=== PATIENT | female | born 1965 | race Caucasian/White ===

== ENCOUNTER 2016-12-02 20:39 | Inpatient (IN) | payer MEDICARE, MEDICAID ==
[2016-12-02] MEDS ORDERED: HYDROmorphone 0.5 MG/0.5 ML Syringe IVPUSH ONE (21:07)
[2016-12-02] MEDS ORDERED: LORazepam 2 MG/ML MDV IVPUSH ONE (21:07)
[2016-12-02] MEDS ORDERED: Thiamine 100 MG in Sodium Chloride 0.9% 100 ML IV ONE (21:13)
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
[2016-12-02] MEDS ORDERED: Dextrose 5%-0.9% NaCl 1,000 ML IV SCH (21:15)
--- NOTE | 2016-12-02 22:16 | CT ---
CT cervical spine Technique: Multiple axial sections were obtained from above C1 inferiorly to the bottom of T1. Reconstructed coronal and sagittal images were obtained. Comparison: No previous study. Findings: Mastoid sinuses and middle ear cavities are clear. Posterior skull base is intact. Vertebral bodies and posterior arches are intact. No fracture is seen. No bony central or bony neural foraminal. No abnormal subluxation is seen on the reconstructed sagittal images. There is focal osteopenia or a lucent lesion within the base of the dens. No cortical disruption is seen. Impression: 1. Lucent lesion within the dens. This may represent focal osteopenia but difficult to exclude early osteolytic lesion, this puts the patient at risk for future pathologic fracture. Nonemergent bone survey recommended to make sure no additional lucent lesions are present within the skeletal system. 2. Nothing acute is appreciated on CT study of the cervical spine. Diagnostic code #9
--- NOTE | 2016-12-02 22:19 | CT ---
Head CT Technique: Multiple axial sections through the brain were obtained. Intravenous contrast was not utilized. Comparison: No previous intracranial imaging. Findings: Ventricles along with basal cisterns and sulci over the convexities appear within normal limits for the patient's age. No abnormal parenchymal densities are seen. No evidence of intracranial hemorrhage. No midline shift or mass effect is seen. Bone window settings were reviewed which shows the visualized sinuses to appear clear. No acute calvarial abnormality is seen. Impression: 1. No acute intracranial abnormality is identified. Diagnostic code #1
--- NOTE | 2016-12-02 22:22 | CT ---
CT lumbar spine Technique: Multiple axial sections were obtained from the bottom of T11 through the L5-S1 disc. Reconstructed coronal and sagittal images were reviewed. Findings: Mild to moderate endplate concavity is seen within the superior L1 vertebral body believed to be acute. No extension into the posterior line or posterior elements is seen. No additional fracture is identified. Slight circumferential disc bulge is noted at L3-4 with posterior disc maintaining a concave margin. Circumferential disc bulge noted at L4-5. Diffuse posterior disc bulge seen at L5-S1 with slight vacuum phenomena. No focal disc herniation is seen. No central canal stenosis or neural foraminal stenosis is seen. Impression: 1. Superior endplate concavity of L1 which appears to be acute. 2. Mild circumferential disc bulging as noted above. No focal disc herniation is seen. 3. No additional abnormality is appreciated. Diagnostic code #3
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
[2016-12-02] MEDS ORDERED: Promethazine 12.5 MG in Sodium Chloride 0.9% 50 ML IV PRN (23:24)
[2016-12-02] MEDS ORDERED: Ondansetron 4 MG/2 ML SDV IV PRN (23:24)
[2016-12-02] MEDS ORDERED: HYDROmorphone 1 MG/ML Syringe IVPUSH PRN (23:24)
[2016-12-02] MEDS ORDERED: Albuterol/Ipratropium 3.0-0.5 MG/3 ML Neb Soln NEB PRN (23:24)
[2016-12-02] MEDS ORDERED: Polyethylene Glycol 3350 Powder 17 GM Packet PO PRN (23:24)
[2016-12-02] MEDS ORDERED: Bisacodyl 5 MG Tab PO PRN (23:24)
[2016-12-02] MEDS ORDERED: hydrALAZINE 20 MG/ML SDV IVPUSH PRN (23:31)
[2016-12-02] MEDS ORDERED: LORazepam 2 MG/ML MDV IVPUSH PRN ×2 (23:31)
[2016-12-02] MEDS ORDERED: Metoprolol Tartrate 5 MG/5 ML SDV IVPUSH PRN (23:31)
[2016-12-03] MEDS ORDERED: cloNIDine 0.3 MG/Day Transdermal Patch TRDERM ONE
[2016-12-03] MEDS ORDERED: Lidocaine 5% 700 MG Patch TOP SCH
[2016-12-03] MEDS: QUEtiapine 25 MG Tab PO SCH ×2 (00:03→20:49)
[2016-12-03] MEDS: Temazepam 30 MG Cap PO PRN ×2 (00:03→20:49)
[2016-12-03] MEDS: LORazepam 2 MG/ML MDV IVPUSH PRN ×4 (00:03→20:52)
[2016-12-03] MEDS: Dextrose 5%-0.45% NaCl 1,000 ML IV SCH ×2 (00:05→20:48)
[2016-12-03] MEDS: Acetaminophen/HYDROcodone 325-5 MG Tab PO PRN ×2 (05:23→17:51)
[2016-12-03] MEDS: Pantoprazole 40 MG Tab.CR PO SCH ×2 (05:23→15:02)
[2016-12-03] MEDS ORDERED: Levothyroxine 112 MCG Tab PO SCH (06:00)
--- NOTE | 2016-12-03 08:11 | PCM.PN ---
- General Info Date of Service: 12/03/16 Admission Dx/Problem (Free Text): Admission Diagnosis/Problem Admission Diagnosis/Problem Compression fracture of lumbar spine Subjective Update: Follow Up Functional Status: Reports: pain controlled, tolerating diet, ambulating, urinating. Denies: new symptoms - Review of Systems General: Reports: Weakness. Denies: Fever, Chills HEENT: Reports: no symptoms Pulmonary: Denies: shortness of breath Cardiovascular: Denies: Chest Pain, Palpitations, Dyspnea on Exertion Gastrointestinal: Denies: Abdominal pain, Nausea, Vomiting Genitourinary: Reports: no symptoms Musculoskeletal: Reports: back pain Skin: Denies: cyanosis, rash Neurological: Reports: Difficulty Walking, Weakness, Gait Disturbance Psychiatric: Denies: depression, anxiety, agitation, cravings, hallucinations Systems Review Comment:: No overnight issues. She slept good. She still has pain. She appears lethargic. - Patient Data Vitals - most recent: Last Vital Signs Temp 36.6 C 12/03/16 04:00 Pulse 94 12/03/16 06:00 Resp 11 L 12/03/16 06:00 BP 102/69 12/03/16 04:01 Pulse Ox 98 12/03/16 06:00 Weight - most recent: 65.771 kg I&O - last 24 hours: Intake & Output 12/02/16 12/03/16 12/03/16 22:59 06:59 14:59 Intake Total 1679 Output Total 250 Balance 1429 Lab Results last 24 hrs: Laboratory Results - last 24 hr 12/03/16 12/03/16 Range/Units 05:20 05:20 WBC 3.50 L (3.98-10.04) K/mm3 RBC 3.31 L (3.98-5.22) M/mm3 Hgb 8.8 L (11.2-15.7) gm/L Hct 28.6 L (34.1-44.9) % MCV 86.4 (79.4-94.8) fl MCH 26.6 (25.6-32.2) pg MCHC 30.8 L (32.2-35.5) g/dl RDW Std Deviation 62.1 H (36.4-46.3) fL Plt Count 109 L (182-369) K/mm3 MPV 9.7 (9.4-12.3) fl Neut % (Auto) 60.8 (34.0-71.1) % Lymph % (Auto) 26.9 (19.3-51.7) % Ashe % (Auto) 9.4 (4.7-12.5) % Eos % (Auto) 1.1 (0.7-5.8) Baso % (Auto) 0.9 (0.1-1.2) % Neut # (Auto) 2.13 (1.56-6.13) K/mm3 Lymph # (Auto) 0.94 L (1.18-3.74) K/mm3 Ashe # (Auto) 0.33 (0.24-0.36) K/mm3 Eos # (Auto) 0.04 (0.04-0.36) K/mm3 Baso # (Auto) 0.03 (0.01-0.08) K/mm3 Sodium 138 (136-145) mEq/L Potassium 3.6 (3.5-5.1) mEq/L Chloride 102 (98-107) mEq/L Carbon Dioxide 29 (21-32) mEq/L Anion Gap 10.6 (5-15) BUN 11 (7-18) mg/dL Creatinine 0.6 (0.55-1.02) mg/dL Est Cr Clr Drug Dosing 81.82 mL/min Estimated GFR (MDRD) > 60 (>60) mL/min BUN/Creatinine Ratio 18.3 H (14-18) Glucose 126 H (74-106) mg/dL Calcium 7.4 L (8.5-10.1) mg/dL Magnesium 1.6 L (1.8-2.4) mg/dl Med Orders - Current: Current Medications Acetaminophen (Tylenol) 650 mg PO Q4H PRN PRN Reason: Pain (Mild 1-3)/fever Hydrocodone Bitart/Acetaminophen (Warren 325-5 Mg) 1 tab PO Q4H PRN PRN Reason: Pain (moderate 4-6) Last Admin: 12/03/16 05:23 Dose: 1 tab Albuterol/Ipratropium (Duoneb 3.0-0.5 Mg/3 Ml) 3 ml NEB Q4H PRN PRN Reason: Shortness Of Breath/wheezing Bisacodyl (Dulcolax) 5 mg PO DAILY PRN PRN Reason: Constipation Bupropion HCl (Wellbutrin Xl) 150 mg PO DAILY [facility] Chlordiazepoxide HCl (Librium) 25 mg PO TID [facility] Docusate Sodium (Colace) 100 mg PO BID [facility] Hydralazine HCl (Apresoline) 20 mg IVPUSH Q4H PRN PRN Reason: Hypertension Hydromorphone HCl (Dilaudid) 1 mg IVPUSH Q6H PRN PRN Reason: Pain (severe 7-10) Last Admin: 12/03/16 00:00 Dose: 1 mg Dextrose/Sodium Chloride (Dextrose 5%-Normal Saline) 1,000 mls @ 999 mls/hr IV ASDIRECTED [facility] Last Admin: 12/02/16 21:16 Dose: 999 mls/hr Dextrose/Sodium Chloride (Dextrose 5%-1/2 Ns) 1,000 mls @ 125 mls/hr IV ASDIRECTED [facility] Last Admin: 12/03/16 00:05 Dose: 125 mls/hr Promethazine HCl 12.5 mg/ (Sodium Chloride) 50.5 mls @ 100 mls/hr IV Q6H PRN PRN Reason: Nausea/Vomiting Levothyroxine Sodium (Levothyroxine) 112 mcg PO ACBREAKFAST [facility] Last Admin: 12/03/16 05:23 Dose: 112 mcg Lidocaine (Lidoderm 5%) 700 mg TOP Q24H [facility] Last Admin: 12/03/16 00:04 Dose: 700 mg Lorazepam (Ativan) 2 mg IVPUSH Q4H PRN PRN Reason: Seizures Lorazepam (Ativan) 0 mg IVPUSH ASDIRECTED PRN; Protocol PRN Reason: Withdrawal Symptoms Last Admin: 12/03/16 05:20 Dose: 1 mg Magnesium Sulfate (Pharmacy To Dose - Magnesium Replacement) 1 dose .XX ASDIRECTED [facility] Metoprolol Tartrate (Lopressor) 5 mg IVPUSH Q4H PRN PRN Reason: Tachycardia Miscellaneous Information (Remove Patch) 1 ea TRDERM Q24H [facility] Ondansetron HCl (Zofran) 4 mg IV Q6H PRN PRN Reason: Nausea/Vomiting Oxycodone HCl (Oxycontin) 10 mg PO Q12HR [facility] Pantoprazole Sodium (Protonix) 40 mg PO BIDAC [facility] Last Admin: 12/03/16 05:23 Dose: 40 mg Polyethylene Glycol (Miralax) 17 gm PO DAILY PRN PRN Reason: Constipation Potassium Chloride (Pharmacy To Dose - Potassium Replacement) 1 dose .XX ASDIRECTED [facility] Pramipexole Dihydrochloride (Mirapex) 0.125 mg PO BEDTIME LOVE Quetiapine Fumarate (Seroquel) 50 mg PO BEDTIME LOVE Last Admin: 12/03/16 00:03 Dose: 50 mg Senna/Docusate Sodium (Senna Plus) 1 tab PO BID PRN PRN Reason: Constipation Temazepam (Restoril) 30 mg PO BEDTIME PRN PRN Reason: Insomnia Last Admin: 12/03/16 00:03 Dose: 30 mg Thiamine HCl (Vitamin B-1) 100 mg PO DAILY [facility] Discontinued Medications Clonidine HCl (Catapres-Tts 3) 0.3 mg TRDERM Q7D ONE Stop: 12/03/16 00:01 Last Admin: 12/03/16 00:04 Dose: 0.3 mg Enoxaparin Sodium (Lovenox) 40 mg SUBCUT DAILY [facility] Hydromorphone HCl (Dilaudid) 0.5 mg IVPUSH ONETIME ONE Stop: 12/02/16 21:08 Last Admin: 12/02/16 21:20 Dose: 0.5 mg Hydromorphone HCl (Dilaudid) 1 mg IVPUSH Q4H PRN PRN Reason: Pain (severe 7-10) Thiamine HCl 100 mg/ Sodium (Chloride) 101 mls @ 200 mls/hr IV ONETIME ONE Stop: 12/02/16 21:43 Last Admin: 12/02/16 21:54 Dose: 200 mls/hr Lorazepam (Ativan) 1 mg IVPUSH ONETIME ONE Stop: 12/02/16 21:08 Last Admin: 12/02/16 21:17 Dose: 1 mg Lorazepam (Ativan) 1 mg IVPUSH Q4H PRN; Protocol PRN Reason: Withdrawal Symptoms Quetiapine Fumarate (Seroquel) 50 mg PO BEDTIME LOVE Trazodone HCl (Trazodone) 150 mg PO BEDTIME LOVE - Exam General: lethargic HEENT: Pupils equal, Pupils reactive, EOMI, Mucous membr. moist/pink Neck: supple, trachea midline, no JVD, no thyromegaly Lungs: Clear to auscultation, Normal respiratory effort Cardiovascular: Regular Rate, Regular Rhythm Abdomen: bowel sounds present, soft, no tenderness, no distension (Female) Exam: Deferred Back Exam: normal inspection, decreased range of motion Extremities: no edema, normal pulses, no tenderness/swelling, no clubbing, no cyanosis, no calf tenderness Peripheral Pulses: 2+: dorsalis pedis (L), dorsalis pedis (R) Skin: warm, dry, intact Neurological: no new focal deficit Psy/Mental Status: alert, normal affect, normal mood, withdrawal symptoms. No: agitated, suicidal ideation, homicidal ideation, hallucinations Physical Findings Comments:: She is still lethargic. - Problem List Review Problem List Initiated/Reviewed/Updated: Yes - My Orders Last 24 Hours: My Active Orders 12/02/16 23:24 CIWAA Assessment [RC] Q15M CIWAA Assessment [RC] Q1H CIWAA Assessment [RC] Q30M CIWAA Assessment [RC] Q4H Height and Weight [RC] 04 Notify Provider [RC] PRN Oxygen Therapy [RC] PRN Up With Assistance [RC] ASDIRECTED Up ad Reema [RC] ASDIRECTED VTE/DVT Education [RC] PER UNIT ROUTINE Vital Signs [RC] Q4HR Acetaminophen [Tylenol] 650 mg PO Q4H PRN Acetaminophen/HYDROcodone [Warren 325-5 MG] 1 tab PO Q4H PRN Albuterol/Ipratropium [DuoNeb 3.0-0.5 MG/3 ML] 3 ml NEB Q4H PRN Bisacodyl [Dulcolax] 5 mg PO DAILY PRN Docusate Sodium/Sennosides [Senna Plus] 1 tab PO BID PRN Ondansetron [Zofran] 4 mg IV Q6H PRN Polyethylene Glycol 3350 [MiraLAX] 17 gm PO DAILY PRN Promethazine [Phenergan] 12.5 mg Sodium Chloride 0.9% [Normal Saline] 50 ml IV Q6H Resuscitation Status Routine 12/02/16 23:25 Cardiac Monitoring [RC] CONTINUOUS Intake and Output [RC] 04,16 12/02/16 23:26 RT Aerosol Therapy [RC] ASDIRECTED Consult to Case Management [CONS] Routine Consult to Physician [CONS] Routine Consult to Occasional Babysitter [CONS] Routine Consult to Spiritual Care [CONS] Routine OT Evaluation and Treatment [CONS] Routine PT Evaluation and Treatment [CONS] Routine 12/02/16 23:29 Notify Provider Consults [RC] ASDIRECTED 12/02/16 23:30 Dextrose 5%-0.45% NaCl [Dextrose 5%-1/2 NS] 1,000 ml IV ASDIRECTED 12/02/16 23:31 LORazepam [Ativan] 2 mg IVPUSH Q4H PRN Metoprolol Tartrate [Lopressor] 5 mg IVPUSH Q4H PRN hydrALAZINE [Apresoline] 20 mg IVPUSH Q4H PRN 12/02/16 23:33 Temazepam [Restoril] 30 mg PO BEDTIME PRN 12/02/16 23:41 HYDROmorphone [Dilaudid] 1 mg IVPUSH Q6H PRN 12/02/16 23:44 Consult for Substance Abuse [CONS] Routine 12/02/16 23:46 LORazepam [Ativan] See Protocol IVPUSH ASDIRECTED PRN 12/02/16 23:47 QUEtiapine [SEROquel] 50 mg PO BEDTIME 12/03/16 00:00 Lidocaine 5% [Lidoderm 5%] 700 mg TOP Q24H 12/03/16 06:00 Levothyroxine 112 mcg PO ACBREAKFAST Pantoprazole [ProTONIX] 40 mg PO BIDAC 12/03/16 08:09 Guaiac [OCCULT BLOOD DIAGNOSTIC] [OP] Stat 12/03/16 08:15 Magnesium Rep Pharmacy to Dose [Pharmacy to Dose - Magnesium Replacement] 1 dose .XX ASDIRECTED Potassium Rep Pharmacy to Dose [Pharmacy to Dose - Potassium Replacement] 1 dose .XX ASDIRECTED 12/03/16 09:00 Docusate Sodium [Colace] 100 mg PO BID Thiamine [Vitamin B-1] 100 mg PO DAILY buPROPion [Wellbutrin XL] 150 mg PO DAILY chlordiazePOXIDE [Librium] 25 mg PO TID oxyCODONE ER [OxyCONTIN] 10 mg PO Q12HR 12/03/16 12:00 HEMOGLOBIN/HEMATOCRIT,HH [HEME] Routine Remove Patch 1 ea TRDERM Q24H 12/03/16 21:00 Pramipexole [Mirapex] 0.125 mg PO BEDTIME 12/03/16 Breakfast Regular Diet [DIET] 12/04/16 05:11 BASIC METABOLIC PANEL,BMP [CHEM] AM CBC WITH AUTO DIFF [HEME] AM MAGNESIUM [CHEM] AM 12/05/16 05:11 BASIC METABOLIC PANEL,BMP [CHEM] AM CBC WITH AUTO DIFF [HEME] AM MAGNESIUM [CHEM] AM 12/06/16 05:11 BASIC METABOLIC PANEL,BMP [CHEM] AM CBC WITH AUTO DIFF [HEME] AM MAGNESIUM [CHEM] AM - Plan Plan:: Assessment/Plan: Acute: Acute ETOH Intoxication: CIWAS score 14 - YOHAN is 0.29 - Drinks 1 gal of vodka daily - CIWA protocol - Supportive care Chronic ETOH Abuse - Drinks for over 6 years but ED notes says 10 years - She has been in chemical rehab in the past few months - Unclear whether she follows [facility] - She wants to detox Substance Abuse - Admit to using Marijuana - Most recent use 1 week ago - UDS pos for THC Thrombocytopenia - Platelet of 128---> 109 - 2/2 Chronic ETOH Use - Continue to monitor Anxiety/Depression - She is on Bupropion XL 150 mg po daily - She follows Psych at [facility] - She is not suicidal or homocidal - Continue Home Med Inadequate Thyroid Hormone Intake - TSH is 112 - Has Hypothyroidism - Thyroid hormone home dose is 112 mcg po daily - Increased dose to 137 mcg po daily Compression Fracture of L1 - CT scan finding - Consulted Ortho by Dr. Gould in ED - Awaiting input Cervical Spine CT Scan: Lucent Lesion within the dens: Focal Osteopenia vs Osteolytic Lesion - She is post meopausal and carries a hx/o Chronic ETOH Use - Defer outpatient work up by PCP Plan: She is clinically stable Continue current treatment Continue Home Meds CIWA protocol: Ativan/Librium MVI, Folic Acid and Thiamine Ativan IV for abortive seizures Restoril 30 mg po QHS for Insomnia PRN Withdrawal Meds: Clonidine, BB, Hydralazine Routine AM labs DVT ppx: SCDs GI ppx: PPI Fall/Seizure Precautions SW/CM for d/c planning SAC consult Additional orders as above Code status: 1
[2016-12-03] MEDS ORDERED: Magnesium Sulfate/Water 2 GM in Premix Bag 1 BAG IV ONE (08:30)
[2016-12-03] MEDS: oxyCODONE ER 10 MG TAB.ER PO SCH ×2 (08:38→20:51)
[2016-12-03] MEDS: Thiamine 100 MG Tab PO SCH (08:38)
[2016-12-03] MEDS: chlordiazePOXIDE 25 MG Cap PO SCH ×3 (08:38→20:51)
[2016-12-03] MEDS: Docusate Sodium 100 MG Cap PO SCH ×2 (08:40→20:51)
[2016-12-03] MEDS: buPROPion 150 MG Tab.ER PO SCH (08:40)
[2016-12-03] MEDS ORDERED: Enoxaparin 40 MG/0.4 ML Syringe SUBCUT SCH (09:00)
--- NOTE | 2016-12-03 09:31 | CR ---
Lumbar spine: AP and lateral views of the lumbar spine were obtained as well as a coned-down lateral view centered to the thoracolumbar junction. Comparison: Previous CT exam of 12/02/16. Superior endplate compression deformity is seen of L1. This appears stable from previous CT. No retrolisthesed fragments are seen. No involvement of the posterior vertebral line was noted on CT exam. Other vertebral body heights are maintained. Disc spaces are maintained. Pedicles as well as visualized transverse and spinous processes are intact. Surgical anastomotic sutures noted within the left upper abdomen as well as surgical clips. Minimal scattered endplate osteophytes are seen. Impression: 1. Superior endplate compression deformity of L1 which appears stable from recent CT exam. 2. Minimal scattered endplate osteophytes and other incidental findings. Diagnostic code #3
[2016-12-03] MEDS: HYDROmorphone 1 MG/ML Syringe IVPUSH PRN ×2 (13:54)
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
[2016-12-03] MEDS: Pramipexole 0.25 MG Tab PO SCH (20:51)
[2016-12-03] MEDS: Lidocaine 5% 700 MG Patch TOP SCH (20:52)
[2016-12-03] MEDS ORDERED: QUEtiapine 25 MG Tab PO SCH (21:00)
[2016-12-03] MEDS ORDERED: traZODone 50 MG Tab PO SCH (21:00)
--- NOTE | 2016-12-03 21:29 | CONS ---
CONSULTING PHYSICIAN: Riky Esparza LAC DATE OF CONSULTATION: 12/03/2016 TIME: 08:57 p.m. KIMMY Gauthier called me today with a request for an alcohol and drug consultation for the patient. I arrived at the hospital at approximately 04:00 p.m. on 12/03/2016. The patient was not ready to be seen for the evaluation; however, she had requested to speak with me regarding her court hearing on 12/04/2016. I visited with the patient regarding her upcoming court date and instructed her to contact her sports attorney, Alfredo Gabriel at [facility] first thing in the morning to reschedule her court date. I gave these instructions to her nurse, Amanda, and to KIMMY Gauthier. Tomorrow, 12/04/2016, I will follow through with the alcohol and drug evaluation. JIMI /[id number]
[2016-12-04] MEDS: Pantoprazole 40 MG Tab.CR PO SCH ×2 (05:12→16:02)
--- NOTE | 2016-12-04 07:36 | PCM.PN ---
- General Info Date of Service: 12/04/16 Admission Dx/Problem (Free Text): Admission Diagnosis/Problem Admission Diagnosis/Problem Compression fracture of lumbar spine Subjective Update: Follow Up Functional Status: Reports: pain controlled, tolerating diet, ambulating, urinating. Denies: new symptoms Pain Score: 6 - Review of Systems General: Denies: Fever, Chills HEENT: Reports: no symptoms Pulmonary: Denies: shortness of breath Cardiovascular: Denies: Chest Pain Gastrointestinal: Denies: Abdominal pain, Nausea, Vomiting Musculoskeletal: Reports: back pain Skin: Reports: no symptoms Neurological: Reports: No Symptoms, Difficulty Walking, Gait Disturbance. Denies: Confusion Psychiatric: Denies: depression, anxiety, agitation, hallucinations Systems Review Comment:: She slept good last night. She complaints of back but better, pain scale of 6/ 10. She has no new complaints. Her Hgb is stable at 8.2. No active bleed reported by overnight nurse. - Patient Data Vitals - most recent: Last Vital Signs Temp 37.0 C 12/04/16 04:00 Pulse 81 12/04/16 04:01 Resp 12 12/04/16 04:01 BP 108/76 12/04/16 04:00 Pulse Ox 98 12/04/16 04:01 Weight - most recent: 68.583 kg I&O - last 24 hours: Intake & Output 12/03/16 12/04/16 12/04/16 22:59 06:59 14:59 Intake Total 1937 885 Output Total 600 1600 Balance 1337 -715 Lab Results last 24 hrs: Laboratory Results - last 24 hr 12/03/16 12/04/16 12/04/16 Range/Units 12:02 05:32 05:32 WBC 3.49 L (3.98-10.04) K/mm3 RBC 3.10 L (3.98-5.22) M/mm3 Hgb 8.8 L 8.2 L (11.2-15.7) gm/L Hct 29.1 L 27.0 L (34.1-44.9) % MCV 87.1 (79.4-94.8) fl MCH 26.5 (25.6-32.2) pg MCHC 30.4 L (32.2-35.5) g/dl RDW Std Deviation 64.9 H (36.4-46.3) fL Plt Count 108 L (182-369) K/mm3 MPV 10.4 (9.4-12.3) fl Neut % (Auto) 57.8 (34.0-71.1) % Lymph % (Auto) 31.2 (19.3-51.7) % Noble % (Auto) 7.2 (4.7-12.5) % Eos % (Auto) 2.9 (0.7-5.8) Baso % (Auto) 0.6 (0.1-1.2) % Neut # (Auto) 2.02 (1.56-6.13) K/mm3 Lymph # (Auto) 1.09 L (1.18-3.74) K/mm3 Noble # (Auto) 0.25 (0.24-0.36) K/mm3 Eos # (Auto) 0.10 (0.04-0.36) K/mm3 Baso # (Auto) 0.02 (0.01-0.08) K/mm3 Sodium 140 (136-145) mEq/L Potassium 4.0 (3.5-5.1) mEq/L Chloride 104 (98-107) mEq/L Carbon Dioxide 31 (21-32) mEq/L Anion Gap 9.0 (5-15) BUN 5 L (7-18) mg/dL Creatinine 0.6 (0.55-1.02) mg/dL Est Cr Clr Drug Dosing 81.82 mL/min Estimated GFR (MDRD) > 60 (>60) mL/min BUN/Creatinine Ratio 8.3 L (14-18) Glucose 97 (74-106) mg/dL Calcium 8.3 L (8.5-10.1) mg/dL Magnesium 2.2 (1.8-2.4) mg/dl Med Orders - Current: Current Medications Acetaminophen (Tylenol) 650 mg PO Q4H PRN PRN Reason: Pain (Mild 1-3)/fever Hydrocodone Bitart/Acetaminophen ([place] 325-5 Mg) 1 tab PO Q4H PRN PRN Reason: Pain (moderate 4-6) Last Admin: 12/03/16 17:51 Dose: 1 tab Albuterol/Ipratropium (Duoneb 3.0-0.5 Mg/3 Ml) 3 ml NEB Q4H PRN PRN Reason: Shortness Of Breath/wheezing Bisacodyl (Dulcolax) 5 mg PO DAILY PRN PRN Reason: Constipation Bupropion HCl (Wellbutrin Xl) 150 mg PO DAILY [facility] Last Admin: 12/03/16 08:40 Dose: 150 mg Chlordiazepoxide HCl (Librium) 25 mg PO TID [facility] Last Admin: 12/03/16 20:51 Dose: 25 mg Docusate Sodium (Colace) 100 mg PO BID [facility] Last Admin: 12/03/16 20:51 Dose: 100 mg Hydralazine HCl (Apresoline) 20 mg IVPUSH Q4H PRN PRN Reason: Hypertension Hydromorphone HCl (Dilaudid) 1 mg IVPUSH Q6H PRN PRN Reason: Pain (severe 7-10) Last Admin: 12/03/16 13:54 Dose: 1 mg Promethazine HCl 12.5 mg/ (Sodium Chloride) 50.5 mls @ 100 mls/hr IV Q6H PRN PRN Reason: Nausea/Vomiting Levothyroxine Sodium (Levothroid) 137 mcg PO ACBREAKFAST [facility] Last Admin: 12/04/16 05:12 Dose: 137 mcg Lidocaine (Lidoderm 5%) 700 mg TOP Q24H [facility] Last Admin: 12/03/16 20:52 Dose: 700 mg Lorazepam (Ativan) 2 mg IVPUSH Q4H PRN PRN Reason: Seizures Last Admin: 12/03/16 15:05 Dose: 2 mg Lorazepam (Ativan) 0 mg IVPUSH ASDIRECTED PRN; Protocol PRN Reason: Withdrawal Symptoms Last Admin: 12/03/16 20:52 Dose: 1 mg Magnesium Sulfate (Pharmacy To Dose - Magnesium Replacement) 1 dose .XX ASDIRECTED [facility] Metoprolol Tartrate (Lopressor) 5 mg IVPUSH Q4H PRN PRN Reason: Tachycardia Miscellaneous Information (Remove Patch) 1 ea TRDERM DAILY [facility] Miscellaneous Information (Remove Patch) 1 ea TRDERM Q24H [facility] Nicotine (Habitrol) 21 mg TRDERM DAILY [facility] Ondansetron HCl (Zofran) 4 mg IV Q6H PRN PRN Reason: Nausea/Vomiting Oxycodone HCl (Oxycontin) 10 mg PO Q12HR [facility] Last Admin: 12/03/16 20:51 Dose: 10 mg Pantoprazole Sodium (Protonix) 40 mg PO BIDAC [facility] Last Admin: 12/04/16 05:12 Dose: 40 mg Polyethylene Glycol (Miralax) 17 gm PO DAILY PRN PRN Reason: Constipation Potassium Chloride (Pharmacy To Dose - Potassium Replacement) 1 dose .XX ASDIRECTED [facility] Pramipexole Dihydrochloride (Mirapex) 0.125 mg PO BEDTIME [facility] Last Admin: 12/03/16 20:51 Dose: 0.125 mg Quetiapine Fumarate (Seroquel) 50 mg PO BEDTIME [facility] Last Admin: 12/03/16 20:49 Dose: 50 mg Senna/Docusate Sodium (Senna Plus) 1 tab PO BID PRN PRN Reason: Constipation Temazepam (Restoril) 30 mg PO BEDTIME PRN PRN Reason: Insomnia Last Admin: 12/03/16 20:49 Dose: 30 mg Thiamine HCl (Vitamin B-1) 100 mg PO DAILY [facility] Last Admin: 12/03/16 08:38 Dose: 100 mg Discontinued Medications Clonidine HCl (Catapres-Tts 3) 0.3 mg TRDERM Q7D ONE Stop: 12/03/16 00:01 Last Admin: 12/03/16 00:04 Dose: 0.3 mg Enoxaparin Sodium (Lovenox) 40 mg SUBCUT DAILY [facility] Hydromorphone HCl (Dilaudid) 0.5 mg IVPUSH ONETIME ONE Stop: 12/02/16 21:08 Last Admin: 12/02/16 21:20 Dose: 0.5 mg Hydromorphone HCl (Dilaudid) 1 mg IVPUSH Q4H PRN PRN Reason: Pain (severe 7-10) Dextrose/Sodium Chloride (Dextrose 5%-Normal Saline) 1,000 mls @ 999 mls/hr IV ASDIRECTED [facility] Last Admin: 12/02/16 21:16 Dose: 999 mls/hr Thiamine HCl 100 mg/ Sodium (Chloride) 101 mls @ 200 mls/hr IV ONETIME ONE Stop: 12/02/16 21:43 Last Admin: 12/02/16 21:54 Dose: 200 mls/hr Dextrose/Sodium Chloride (Dextrose 5%-1/2 Ns) 1,000 mls @ 125 mls/hr IV ASDIRECTED [facility] Last Admin: 12/03/16 20:48 Dose: 125 mls/hr Magnesium Sulfate 2 gm/ Premix 50 mls @ 25 mls/hr IV ONETIME ONE Stop: 12/03/16 10:29 Last Admin: 12/03/16 08:41 Dose: 25 mls/hr Levothyroxine Sodium (Levothyroxine) 112 mcg PO ACBREAKFAST [facility] Last Admin: 12/03/16 05:23 Dose: 112 mcg Lidocaine (Lidoderm 5%) 700 mg TOP Q24H [facility] Last Admin: 12/03/16 00:04 Dose: 700 mg Lorazepam (Ativan) 1 mg IVPUSH ONETIME ONE Stop: 12/02/16 21:08 Last Admin: 12/02/16 21:17 Dose: 1 mg Lorazepam (Ativan) 1 mg IVPUSH Q4H PRN; Protocol PRN Reason: Withdrawal Symptoms Miscellaneous Information (Remove Patch) 1 ea TRDERM Q24H [facility] Last Admin: 12/03/16 13:13 Dose: 1 ea Quetiapine Fumarate (Seroquel) 50 mg PO BEDTIME [facility] Trazodone HCl (Trazodone) 150 mg PO BEDTIME [facility] - Exam General: alert, cooperative, no acute distress, sedated (somewhat sedated) HEENT: Pupils equal, Pupils reactive, EOMI, Mucous membr. moist/pink Neck: supple Lungs: Clear to auscultation, Normal respiratory effort, Decreased breath sounds Cardiovascular: Regular Rate, Regular Rhythm Abdomen: bowel sounds present, soft, no tenderness, no distension (Female) Exam: Deferred Back Exam: normal inspection, decreased range of motion Extremities: no edema, normal pulses, no tenderness/swelling, no clubbing, no cyanosis, no calf tenderness Peripheral Pulses: 2+: dorsalis pedis (L), dorsalis pedis (R) Skin: warm, dry, intact Neurological: no new focal deficit Psy/Mental Status: alert, normal affect, normal mood. No: agitated, suicidal ideation - Problem List Review Problem List Initiated/Reviewed/Updated: Yes - My Orders Last 24 Hours: My Active Orders 12/03/16 08:09 Guaiac [OCCULT BLOOD DIAGNOSTIC] [OP] Stat 12/03/16 08:15 Magnesium Rep Pharmacy to Dose [Pharmacy to Dose - Magnesium Replacement] 1 dose .XX ASDIRECTED Potassium Rep Pharmacy to Dose [Pharmacy to Dose - Potassium Replacement] 1 dose .XX ASDIRECTED 12/03/16 09:00 Docusate Sodium [Colace] 100 mg PO BID Thiamine [Vitamin B-1] 100 mg PO DAILY buPROPion [Wellbutrin XL] 150 mg PO DAILY chlordiazePOXIDE [Librium] 25 mg PO TID oxyCODONE ER [OxyCONTIN] 10 mg PO Q12HR 12/03/16 13:42 Consult to Spiritual Care [CONS] Routine 12/03/16 21:00 Lidocaine 5% [Lidoderm 5%] 700 mg TOP Q24H Pramipexole [Mirapex] 0.125 mg PO BEDTIME 12/03/16 Breakfast Regular Diet [DIET] 12/04/16 06:00 Levothyroxine [Levothroid] 137 mcg PO ACBREAKFAST 12/04/16 06:56 Patient Status [ADT] Routine 12/04/16 07:35 FE, TIBC, TRANSFERRIN, FE SAT [CHEM] Stat FERRITIN [CHEM] Routine 12/04/16 09:00 Nicotine [Habitrol] 21 mg TRDERM DAILY Remove Patch 1 ea TRDERM DAILY Remove Patch 1 ea TRDERM Q24H 12/05/16 05:11 BASIC METABOLIC PANEL,BMP [CHEM] AM CBC WITH AUTO DIFF [HEME] AM MAGNESIUM [CHEM] AM 12/06/16 05:11 BASIC METABOLIC PANEL,BMP [CHEM] AM CBC WITH AUTO DIFF [HEME] AM MAGNESIUM [CHEM] AM - Plan Plan:: Assessment/Plan: Acute: Alcohol Abuse: CIWA score 6-7 - YOHAN is 0.29 - Drinks 1 gal of vodka daily - CIWA protocol - Supportive care Chronic ETOH Abuse - Drinks for over 6 years but ED notes says 10 years - She has been in chemical rehab in the past few months - Unclear whether she follows Riky Esparza LAC - She wants to detox Substance Abuse - Admit to using Marijuana - Most recent use 1 week ago - UDS pos for THC Thrombocytopenia, Stable - Platelet of 128---> 109--> 108 - 2/2 Chronic ETOH Use - Continue to monitor - She is not on anticoags Anxiety/Depression - She is on Bupropion XL 150 mg po daily - She follows Psych at [facility] - She is not suicidal or homocidal - Continue Home Med Inadequate Thyroid Hormone Intake - TSH is 112 - Has Hypothyroidism - Thyroid hormone home dose is 112 mcg po daily - Increased dose to 137 mcg po daily Compression Fracture of L1 - CT scan finding - Consulted Ortho by Dr. Gould in ED - Recommended conservative management Cervical Spine CT Scan: Lucent Lesion within the dens: Focal Osteopenia vs Osteolytic Lesion - She is post meopausal and carries a hx/o Chronic ETOH Use - Defer outpatient work up by PCP TAO - Pending Guaiac Test - Abnormal Iron Panel - IV Iron Infusion in AM Plan: She is clinically stable Continue current treatment Routine AM labs NSAIDS BID Librium 25 mg po BID from TID DVT ppx: SCDs GI ppx: PPI Fall/Seizure Precautions SW/CM for d/c planning Additional orders as above Code status: 1 Currently Riky Esparza is working patient's burner shaft about her outstanding legal issues. At this point, we are waiting for further input.
[2016-12-04] MEDS: Nicotine 21 MG/24 Hr Patch TRDERM SCH (09:56)
[2016-12-04] MEDS: oxyCODONE ER 10 MG TAB.ER PO SCH ×2 (09:57→20:46)
[2016-12-04] MEDS: chlordiazePOXIDE 25 MG Cap PO SCH ×2 (09:58→20:48)
[2016-12-04] MEDS: buPROPion 150 MG Tab.ER PO SCH (09:58)
[2016-12-04] MEDS: Docusate Sodium 100 MG Cap PO SCH ×2 (09:58→20:47)
[2016-12-04] MEDS: Thiamine 100 MG Tab PO SCH (09:58)
[2016-12-04] MEDS: NICOTINE - Remove Patch TRDERM SCH (09:59)
[2016-12-04] MEDS: LORazepam 2 MG/ML MDV IVPUSH PRN ×4 (10:48→17:22)
[2016-12-04] MEDS: Acetaminophen/HYDROcodone 325-5 MG Tab PO PRN ×2 (16:18→20:48)
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
[2016-12-04] MEDS: HYDROmorphone 1 MG/ML Syringe IVPUSH PRN (17:21)
[2016-12-04] MEDS: Lidocaine 5% 700 MG Patch TOP SCH (20:46)
[2016-12-04] MEDS: Folic Acid 1 MG Tab PO SCH (20:47)
[2016-12-04] MEDS: Pramipexole 0.25 MG Tab PO SCH (20:47)
[2016-12-04] MEDS: QUEtiapine 25 MG Tab PO SCH (20:49)
[2016-12-05] MEDS: Acetaminophen/HYDROcodone 325-5 MG Tab PO PRN ×3 (03:52→19:11)
[2016-12-05] MEDS: Pantoprazole 40 MG Tab.CR PO SCH ×2 (06:55→17:32)
[2016-12-05] MEDS: oxyCODONE ER 10 MG TAB.ER PO SCH (08:57)
[2016-12-05] MEDS: chlordiazePOXIDE 25 MG Cap PO SCH ×2 (08:57→20:13)
[2016-12-05] MEDS: buPROPion 150 MG Tab.ER PO SCH (08:57)
[2016-12-05] MEDS: Magnesium Oxide 400 MG Tab PO SCH (08:57)
[2016-12-05] MEDS: Thiamine 100 MG Tab PO SCH (08:57)
[2016-12-05] MEDS: Docusate Sodium 100 MG Cap PO SCH ×2 (08:57→20:13)
[2016-12-05] MEDS: Nicotine 21 MG/24 Hr Patch TRDERM SCH (08:58)
[2016-12-05] MEDS: NICOTINE - Remove Patch TRDERM SCH (09:07)
--- NOTE | 2016-12-05 14:36 | PCM.PN ---
- General Info Date of Service: 12/05/16 Functional Status: Reports: pain controlled, tolerating diet, ambulating, urinating - Review of Systems General: Reports: No Symptoms HEENT: Reports: no symptoms Pulmonary: Reports: no symptoms Cardiovascular: Reports: No Symptoms Gastrointestinal: Reports: No symptoms Genitourinary: Reports: no symptoms Musculoskeletal: Reports: no symptoms Skin: Reports: no symptoms Neurological: Reports: No Symptoms Psychiatric: Reports: no symptoms - Patient Data Vitals - most recent: Last Vital Signs Temp 37.0 C 12/05/16 07:57 Pulse 83 12/05/16 07:57 Resp 16 12/05/16 07:57 BP 110/73 12/05/16 07:57 Pulse Ox 92 L 12/05/16 07:57 Weight - most recent: 64.818 kg I&O - last 24 hours: Intake & Output 12/04/16 12/05/16 12/05/16 22:59 06:59 14:59 Intake Total 400 275 Output Total 600 Balance 400 -325 Lab Results last 24 hrs: Laboratory Results - last 24 hr 12/05/16 12/05/16 Range/Units 06:07 06:07 WBC 2.85 L (3.98-10.04) K/mm3 RBC 3.46 L (3.98-5.22) M/mm3 Hgb 9.1 L (11.2-15.7) gm/L Hct 30.0 L (34.1-44.9) % MCV 86.7 (79.4-94.8) fl MCH 26.3 (25.6-32.2) pg MCHC 30.3 L (32.2-35.5) g/dl RDW Std Deviation 66.2 H (36.4-46.3) fL Plt Count 129 L (182-369) K/mm3 MPV 10.7 (9.4-12.3) fl Neut % (Auto) 52.9 (34.0-71.1) % Lymph % (Auto) 35.1 (19.3-51.7) % Nelson % (Auto) 7.7 (4.7-12.5) % Eos % (Auto) 3.2 (0.7-5.8) Baso % (Auto) 0.4 (0.1-1.2) % Neut # (Auto) 1.51 L (1.56-6.13) K/mm3 Lymph # (Auto) 1.00 L (1.18-3.74) K/mm3 Nelson # (Auto) 0.22 L (0.24-0.36) K/mm3 Eos # (Auto) 0.09 (0.04-0.36) K/mm3 Baso # (Auto) 0.01 (0.01-0.08) K/mm3 Manual Slide Review Abnormal smear Sodium 141 (136-145) mEq/L Potassium 3.9 (3.5-5.1) mEq/L Chloride 103 (98-107) mEq/L Carbon Dioxide 29 (21-32) mEq/L Anion Gap 12.9 (5-15) BUN 7 (7-18) mg/dL Creatinine 0.6 (0.55-1.02) mg/dL Est Cr Clr Drug Dosing 81.91 mL/min Estimated GFR (MDRD) > 60 (>60) mL/min BUN/Creatinine Ratio 11.7 L (14-18) Glucose 97 (74-106) mg/dL Calcium 8.6 (8.5-10.1) mg/dL Magnesium 2.0 (1.8-2.4) mg/dl Med Orders - Current: Current Medications Acetaminophen (Tylenol) 650 mg PO Q4H PRN PRN Reason: Pain (Mild 1-3)/fever Hydrocodone Bitart/Acetaminophen ([place] 325-5 Mg) 1 tab PO Q4H PRN PRN Reason: Pain (moderate 4-6) Last Admin: 12/05/16 14:04 Dose: 1 tab Albuterol/Ipratropium (Duoneb 3.0-0.5 Mg/3 Ml) 3 ml NEB Q4H PRN PRN Reason: Shortness Of Breath/wheezing Bisacodyl (Dulcolax) 5 mg PO DAILY PRN PRN Reason: Constipation Bupropion HCl (Wellbutrin Xl) 150 mg PO DAILY [facility] Last Admin: 12/05/16 08:57 Dose: 150 mg Chlordiazepoxide HCl (Librium) 25 mg PO BID [facility] Last Admin: 12/05/16 08:57 Dose: 25 mg Docusate Sodium (Colace) 100 mg PO BID [facility] Last Admin: 12/05/16 08:57 Dose: 100 mg Folic Acid (Folic Acid) 1 mg PO BEDTIME [facility] Last Admin: 12/04/16 20:47 Dose: 1 mg Hydralazine HCl (Apresoline) 20 mg IVPUSH Q4H PRN PRN Reason: Hypertension Hydromorphone HCl (Dilaudid) 1 mg IVPUSH Q6H PRN PRN Reason: Pain (severe 7-10) Last Admin: 12/04/16 17:21 Dose: 1 mg Promethazine HCl 12.5 mg/ (Sodium Chloride) 50.5 mls @ 100 mls/hr IV Q6H PRN PRN Reason: Nausea/Vomiting Ketorolac Tromethamine (Toradol) 60 mg IM ONETIME ONE Stop: 12/05/16 15:01 Last Admin: 12/05/16 14:03 Dose: 60 mg Ketorolac Tromethamine (Toradol) 30 mg IVPUSH Q6H [facility] Stop: 12/07/16 15:01 Levothyroxine Sodium (Levothroid) 137 mcg PO ACBREAKFAST [facility] Last Admin: 12/05/16 06:55 Dose: 137 mcg Lidocaine (Lidoderm 5%) 700 mg TOP Q24H [facility] Last Admin: 12/04/16 20:46 Dose: 700 mg Lorazepam (Ativan) 2 mg IVPUSH Q4H PRN PRN Reason: Seizures Last Admin: 12/03/16 15:05 Dose: 2 mg Lorazepam (Ativan) 0 mg IVPUSH ASDIRECTED PRN; Protocol PRN Reason: Withdrawal Symptoms Last Admin: 12/04/16 17:22 Dose: 1 mg Magnesium Oxide (Magnesium Oxide) 400 mg PO DAILY [facility] Last Admin: 12/05/16 08:57 Dose: 400 mg Metoprolol Tartrate (Lopressor) 5 mg IVPUSH Q4H PRN PRN Reason: Tachycardia Miscellaneous Information (Remove Patch) 1 ea TRDERM DAILY [facility] Last Admin: 12/05/16 09:07 Dose: Not Given Miscellaneous Information (Remove Patch) 1 ea TRDERM Q24H [facility] Last Admin: 12/05/16 09:08 Dose: Not Given Nicotine (Habitrol) 21 mg TRDERM DAILY [facility] Last Admin: 12/05/16 08:58 Dose: 21 mg Ondansetron HCl (Zofran) 4 mg IV Q6H PRN PRN Reason: Nausea/Vomiting Pantoprazole Sodium (Protonix) 40 mg PO BIDAC [facility] Last Admin: 12/05/16 06:55 Dose: 40 mg Polyethylene Glycol (Miralax) 17 gm PO DAILY PRN PRN Reason: Constipation Pramipexole Dihydrochloride (Mirapex) 0.125 mg PO BEDTIME [facility] Last Admin: 12/04/16 20:47 Dose: 0.125 mg Quetiapine Fumarate (Seroquel) 50 mg PO BEDTIME [facility] Last Admin: 12/04/16 20:49 Dose: 50 mg Senna/Docusate Sodium (Senna Plus) 1 tab PO BID PRN PRN Reason: Constipation Temazepam (Restoril) 30 mg PO BEDTIME PRN PRN Reason: Insomnia Last Admin: 12/03/16 20:49 Dose: 30 mg Thiamine HCl (Vitamin B-1) 100 mg PO DAILY [facility] Last Admin: 12/05/16 08:57 Dose: 100 mg Discontinued Medications Chlordiazepoxide HCl (Librium) 25 mg PO TID [facility] Last Admin: 12/04/16 09:58 Dose: 25 mg Clonidine HCl (Catapres-Tts 3) 0.3 mg TRDERM Q7D ONE Stop: 12/03/16 00:01 Last Admin: 12/03/16 00:04 Dose: 0.3 mg Enoxaparin Sodium (Lovenox) 40 mg SUBCUT DAILY [facility] Hydromorphone HCl (Dilaudid) 0.5 mg IVPUSH ONETIME ONE Stop: 12/02/16 21:08 Last Admin: 12/02/16 21:20 Dose: 0.5 mg Hydromorphone HCl (Dilaudid) 1 mg IVPUSH Q4H PRN PRN Reason: Pain (severe 7-10) Dextrose/Sodium Chloride (Dextrose 5%-Normal Saline) 1,000 mls @ 999 mls/hr IV ASDIRECTED [facility] Last Admin: 12/02/16 21:16 Dose: 999 mls/hr Thiamine HCl 100 mg/ Sodium (Chloride) 101 mls @ 200 mls/hr IV ONETIME ONE Stop: 12/02/16 21:43 Last Admin: 12/02/16 21:54 Dose: 200 mls/hr Dextrose/Sodium Chloride (Dextrose 5%-1/2 Ns) 1,000 mls @ 125 mls/hr IV ASDIRECTED [facility] Last Admin: 12/03/16 20:48 Dose: 125 mls/hr Magnesium Sulfate 2 gm/ Premix 50 mls @ 25 mls/hr IV ONETIME ONE Stop: 12/03/16 10:29 Last Admin: 12/03/16 08:41 Dose: 25 mls/hr Iron Sucrose 500 mg/ Sodium (Chloride) 250 mls @ 62.5 mls/hr IV ONETIME ONE Stop: 12/05/16 11:59 Last Admin: 12/05/16 08:55 Dose: 62.5 mls/hr Levothyroxine Sodium (Levothyroxine) 112 mcg PO ACBREAKFAST [facility] Last Admin: 12/03/16 05:23 Dose: 112 mcg Lidocaine (Lidoderm 5%) 700 mg TOP Q24H [facility] Last Admin: 12/03/16 00:04 Dose: 700 mg Lorazepam (Ativan) 1 mg IVPUSH ONETIME ONE Stop: 12/02/16 21:08 Last Admin: 12/02/16 21:17 Dose: 1 mg Lorazepam (Ativan) 1 mg IVPUSH Q4H PRN; Protocol PRN Reason: Withdrawal Symptoms Magnesium Sulfate (Pharmacy To Dose - Magnesium Replacement) 1 dose .XX ASDIRECTED [facility] Miscellaneous Information (Remove Patch) 1 ea TRDERM Q24H [facility] Last Admin: 12/03/16 13:13 Dose: 1 ea Naproxen (Naprosyn) 375 mg PO Q12HR [facility] Last Admin: 12/05/16 08:57 Dose: 375 mg Oxycodone HCl (Oxycontin) 10 mg PO Q12HR [facility] Last Admin: 12/05/16 08:57 Dose: 10 mg Potassium Chloride (Pharmacy To Dose - Potassium Replacement) 1 dose .XX ASDIRECTED [facility] Quetiapine Fumarate (Seroquel) 50 mg PO BEDTIME [facility] Trazodone HCl (Trazodone) 150 mg PO BEDTIME LOVE - Exam Quality Assessment: DVT prophylaxis General: alert, oriented, cooperative, no acute distress HEENT: Pupils equal, Pupils reactive, EOMI Neck: supple, trachea midline, no JVD Lungs: Clear to auscultation Cardiovascular: Regular Rate, Regular Rhythm Abdomen: bowel sounds present, soft, no tenderness, no distension (Female) Exam: Deferred Back Exam: normal inspection Extremities: normal pulses Skin: warm Neurological: no new focal deficit Psy/Mental Status: alert - Problem List & Annotations (1) Alcohol dependence with acute alcoholic intoxication SNOMED Code(s): 631778280 Code(s): F10.229 - ALCOHOL DEPENDENCE WITH INTOXICATION, UNSPECIFIED Status : Acute Current Visit: Yes Qualifiers: Complication of substance-induced condition: with unspecified complication Qualified Code(s): F10.229 - Alcohol dependence with intoxication, unspecified (2) Compression fracture of first lumbar vertebra SNOMED Code(s): 010261694 Code(s): S32.010A - WEDGE COMPRESSION FRACTURE OF FIRST LUMBAR VERTEBRA, INIT Status: Acute Current Visit: Yes Qualifiers: Encounter type: initial encounter Fracture type: closed Qualified Code(s) : S32.010A - Wedge compression fracture of first lumbar vertebra, initial encounter for closed fracture (3) Hypokalemia due to inadequate potassium intake SNOMED Code(s): 69033317 Code(s): E87.6 - HYPOKALEMIA Status: Acute Current Visit: Yes (4) Metabolic acidosis with increased anion gap and accumulation of organic acids SNOMED Code(s): 14132697 Code(s): E87.2 - ACIDOSIS Status: Acute Current Visit: Yes (5) Nicotine dependence SNOMED Code(s): 68069193 Code(s): F17.200 - NICOTINE DEPENDENCE, UNSPECIFIED, UNCOMPLICATED Status: Acute Current Visit: Yes Qualifiers: Nicotine product type: cigarettes Substance use status: uncomplicated Qualified Code(s): F17.210 - Nicotine dependence, cigarettes, uncomplicated (6) Alcohol abuse SNOMED Code(s): 80785585 Code(s): F10.10 - ALCOHOL ABUSE, UNCOMPLICATED Status: Acute Current Visit: No (7) Alcohol intoxication SNOMED Code(s): 39088653 Code(s): F10.129 - ALCOHOL ABUSE WITH INTOXICATION, UNSPECIFIED Status: Acute Current Visit: No - Problem List Review Problem List Initiated/Reviewed/Updated: Yes - My Orders Last 24 Hours: My Active Orders 12/05/16 13:27 Consult to Physician [CONS] Routine 12/05/16 13:29 Notify Provider Consults [RC] ASDIRECTED 12/05/16 15:00 Ketorolac [Toradol] 60 mg IM ONETIME ONE 12/05/16 21:00 Ketorolac [Toradol] 30 mg IVPUSH Q6H - Plan Plan:: Assessment/Plan: Acute: Alcohol Abuse: CIWA score 6-7 - YOHAN is 0.29 - Drinks 1 gal of vodka daily - CIWA protocol - Supportive care Chronic ETOH Abuse - Drinks for over 6 years but ED notes says 10 years - She has been in chemical rehab in the past few months - Unclear whether she follows Riky Esparza LAC - She wants to detox Substance Abuse - Admit to using Marijuana - Most recent use 1 week ago - UDS pos for THC Thrombocytopenia, Stable - Platelet of 128---> 109--> 108 - 2/2 Chronic ETOH Use - Continue to monitor - She is not on anticoags Anxiety/Depression - She is on Bupropion XL 150 mg po daily - She follows Psych at [facility] - She is not suicidal or homocidal - Continue Home Med Inadequate Thyroid Hormone Intake - TSH is 112 - Has Hypothyroidism - Thyroid hormone home dose is 112 mcg po daily - Increased dose to 137 mcg po daily Compression Fracture of L1 - CT scan finding - Consulted Ortho by Dr. Gould in ED - Recommended conservative management; will stop schedule II, only [place] with 48 hours of Toradol. Cervical Spine CT Scan: Lucent Lesion within the dens: Focal Osteopenia vs Osteolytic Lesion - She is post meopausal and carries a hx/o Chronic ETOH Use - Defer outpatient work up by PCP TAO - Pending Guaiac Test - Abnormal Iron Panel - IV Iron Infusion in AM Plan: She is clinically stable Continue current treatment Routine AM labs TORADOL for pain ATC, NORCO PRN. Continue Librium 25 mg po TID DVT ppx: SCDs GI ppx: PPI Fall/Seizure Precautions SW/CM for d/c planning Additional orders as above Code status: 1 Currently Riky Esparza is working patient's mortgage loan assistant about her outstanding legal issues. At this point, we are waiting for further input. LOS>96 hours with slow response to therapy and DC planning.
[2016-12-05] MEDS ORDERED: Ketorolac 60 MG/2 ML SDV IM ONE (15:00)
[2016-12-05] MEDS ORDERED: Potassium Chloride 10% 20 MEQ/15 ML Soln 30 ML UD Cup PO ONE (18:34)
[2016-12-05] MEDS: QUEtiapine 25 MG Tab PO SCH (20:12)
[2016-12-05] MEDS: Pramipexole 0.25 MG Tab PO SCH (20:12)
[2016-12-05] MEDS: Lidocaine 5% 700 MG Patch TOP SCH (20:12)
[2016-12-05] MEDS: Folic Acid 1 MG Tab PO SCH (20:13)
[2016-12-05] MEDS: Ketorolac 30 MG/ML SDV IVPUSH SCH (20:18)
[2016-12-05] MEDS: Temazepam 30 MG Cap PO PRN (22:23)
[2016-12-05] MEDS: Acetaminophen 325 MG Tab PO PRN (22:27)
[2016-12-06] MEDS: Ketorolac 30 MG/ML SDV IVPUSH SCH ×4 (03:29→21:20)
[2016-12-06] MEDS: Pantoprazole 40 MG Tab.CR PO SCH ×2 (06:57→15:35)
[2016-12-06] MEDS: Docusate Sodium 100 MG Cap PO SCH ×2 (08:59→21:17)
[2016-12-06] MEDS: FLUoxetine 20 MG Cap PO SCH (08:59)
[2016-12-06] MEDS: chlordiazePOXIDE 25 MG Cap PO SCH ×2 (08:59→21:17)
[2016-12-06] MEDS: Magnesium Oxide 400 MG Tab PO SCH (08:59)
[2016-12-06] MEDS: Thiamine 100 MG Tab PO SCH (08:59)
[2016-12-06] MEDS: Nicotine 21 MG/24 Hr Patch TRDERM SCH (09:00)
[2016-12-06] MEDS: NICOTINE - Remove Patch TRDERM SCH (09:00)
--- NOTE | 2016-12-06 09:40 | PCM.PN ---
<Nina Rodriguez M - Last Filed: 12/06/16 09:34> - General Info Date of Service: 12/06/16 Admission Dx/Problem (Free Text): Admission Diagnosis/Problem Admission Diagnosis/Problem Compression fracture of lumbar spine, alcohol withdrawl and abuse Veena is a 51yo female seen this morning accompanied by nursing. She is teary and weepy this morning stating her boyfriend is "selling the house " and "I don't know what is going to happened to my stuff", "I don't know where my dog is". We talk at length about her ongoing social issues this morning. She continues to have back pain. Denies bowel/bladder dysfunction, no radicular pain/weakness. PT reports intermittent noncompliance with recommendations, I talk with her about importance of compliance with restrictions this morning; if not able to comply will recommend she wear marcum brace 24-7 except while bathing. She states she is "ready for treatment" and asks "do I get to go to [facility]". Functional Status: Reports: pain controlled (with current pain regimen), tolerating diet, ambulating, urinating. Denies: new symptoms - Review of Systems General: Reports: No Symptoms HEENT: Reports: no symptoms Pulmonary: Reports: no symptoms Cardiovascular: Reports: No Symptoms Gastrointestinal: Reports: No symptoms Genitourinary: Reports: no symptoms Musculoskeletal: Reports: back pain Skin: Reports: no symptoms Neurological: Reports: No Symptoms Psychiatric: Reports: mood lability - Patient Data Vitals - most recent: Last Vital Signs Temp 97.5 F 12/06/16 09:00 Pulse 92 12/06/16 09:00 Resp 16 12/06/16 09:00 BP 94/68 12/06/16 09:00 Pulse Ox 99 12/06/16 09:00 Weight - most recent: 65.499 kg I&O - last 24 hours: Intake & Output 12/05/16 12/06/16 12/06/16 22:59 06:59 14:59 Intake Total 625 475 Output Total 100 250 Balance 525 225 Lab Results last 24 hrs: Laboratory Results - last 24 hr 12/06/16 12/06/16 Range/Units 06:00 06:00 WBC 3.43 L (3.98-10.04) K/mm3 RBC 3.58 L (3.98-5.22) M/mm3 Hgb 9.4 L (11.2-15.7) gm/L Hct 31.1 L (34.1-44.9) % MCV 86.9 (79.4-94.8) fl MCH 26.3 (25.6-32.2) pg MCHC 30.2 L (32.2-35.5) g/dl RDW Std Deviation 68.1 H (36.4-46.3) fL Plt Count 151 L (182-369) K/mm3 MPV 10.7 (9.4-12.3) fl Neut % (Auto) 60.0 (34.0-71.1) % Lymph % (Auto) 28.6 (19.3-51.7) % [place] % (Auto) 6.4 (4.7-12.5) % Eos % (Auto) 3.8 (0.7-5.8) Baso % (Auto) 0.3 (0.1-1.2) % Neut # (Auto) 2.06 (1.56-6.13) K/mm3 Lymph # (Auto) 0.98 L (1.18-3.74) K/mm3 [place] # (Auto) 0.22 L (0.24-0.36) K/mm3 Eos # (Auto) 0.13 (0.04-0.36) K/mm3 Baso # (Auto) 0.01 (0.01-0.08) K/mm3 Sodium 141 (136-145) mEq/L Potassium 4.0 (3.5-5.1) mEq/L Chloride 105 (98-107) mEq/L Carbon Dioxide 28 (21-32) mEq/L Anion Gap 12.0 (5-15) BUN 11 (7-18) mg/dL Creatinine 0.6 (0.55-1.02) mg/dL Est Cr Clr Drug Dosing 81.91 mL/min Estimated GFR (MDRD) > 60 (>60) mL/min BUN/Creatinine Ratio 18.3 H (14-18) Glucose 95 (74-106) mg/dL Calcium 8.7 (8.5-10.1) mg/dL Magnesium 2.1 (1.8-2.4) mg/dl Med Orders - Current: Current Medications Acetaminophen (Tylenol) 650 mg PO Q4H PRN PRN Reason: Pain (Mild 1-3)/fever Last Admin: 12/05/16 22:27 Dose: 650 mg Hydrocodone Bitart/Acetaminophen (Blythe 325-5 Mg) 1 tab PO Q4H PRN PRN Reason: Pain (moderate 4-6) Last Admin: 12/05/16 19:11 Dose: 1 tab Albuterol/Ipratropium (Duoneb 3.0-0.5 Mg/3 Ml) 3 ml NEB Q4H PRN PRN Reason: Shortness Of Breath/wheezing Bisacodyl (Dulcolax) 5 mg PO DAILY PRN PRN Reason: Constipation Chlordiazepoxide HCl (Librium) 25 mg PO BID [facility] Last Admin: 12/06/16 08:59 Dose: 25 mg Docusate Sodium (Colace) 100 mg PO BID [facility] Last Admin: 12/06/16 08:59 Dose: 100 mg Fluoxetine HCl (Prozac) 20 mg PO DAILY [facility] Last Admin: 12/06/16 08:59 Dose: 20 mg Folic Acid (Folic Acid) 1 mg PO BEDTIME [facility] Last Admin: 12/05/16 20:13 Dose: 1 mg Hydralazine HCl (Apresoline) 20 mg IVPUSH Q4H PRN PRN Reason: Hypertension Hydromorphone HCl (Dilaudid) 1 mg IVPUSH Q6H PRN PRN Reason: Pain (severe 7-10) Last Admin: 12/04/16 17:21 Dose: 1 mg Promethazine HCl 12.5 mg/ (Sodium Chloride) 50.5 mls @ 100 mls/hr IV Q6H PRN PRN Reason: Nausea/Vomiting Ketorolac Tromethamine (Toradol) 30 mg IVPUSH Q6H [facility] Stop: 12/07/16 15:01 Last Admin: 12/06/16 08:58 Dose: 30 mg Levothyroxine Sodium (Levothroid) 137 mcg PO ACBREAKFAST [facility] Last Admin: 12/06/16 06:57 Dose: 137 mcg Lidocaine (Lidoderm 5%) 700 mg TOP Q24H [facility] Last Admin: 12/05/16 20:12 Dose: 700 mg Lorazepam (Ativan) 2 mg IVPUSH Q4H PRN PRN Reason: Seizures Last Admin: 12/03/16 15:05 Dose: 2 mg Lorazepam (Ativan) 0 mg IVPUSH ASDIRECTED PRN; Protocol PRN Reason: Withdrawal Symptoms Last Admin: 12/04/16 17:22 Dose: 1 mg Magnesium Oxide (Magnesium Oxide) 400 mg PO DAILY [facility] Last Admin: 12/06/16 08:59 Dose: 400 mg Metoprolol Tartrate (Lopressor) 5 mg IVPUSH Q4H PRN PRN Reason: Tachycardia Miscellaneous Information (Remove Patch) 1 ea TRDERM DAILY [facility] Last Admin: 12/06/16 09:00 Dose: 1 ea Miscellaneous Information (Remove Patch) 1 ea TRDERM Q24H [facility] Last Admin: 12/06/16 09:01 Dose: 1 ea Nicotine (Habitrol) 21 mg TRDERM DAILY [facility] Last Admin: 12/06/16 09:00 Dose: 21 mg Ondansetron HCl (Zofran) 4 mg IV Q6H PRN PRN Reason: Nausea/Vomiting Pantoprazole Sodium (Protonix) 40 mg PO BIDAC [facility] Last Admin: 12/06/16 06:57 Dose: 40 mg Polyethylene Glycol (Miralax) 17 gm PO DAILY PRN PRN Reason: Constipation Pramipexole Dihydrochloride (Mirapex) 0.125 mg PO BEDTIME [facility] Last Admin: 12/05/16 20:12 Dose: 0.125 mg Quetiapine Fumarate (Seroquel) 50 mg PO BEDTIME [facility] Last Admin: 12/05/16 20:12 Dose: 50 mg Senna/Docusate Sodium (Senna Plus) 1 tab PO BID PRN PRN Reason: Constipation Last Admin: 12/05/16 19:03 Dose: 1 tab Temazepam (Restoril) 30 mg PO BEDTIME PRN PRN Reason: Insomnia Last Admin: 12/05/16 22:23 Dose: 30 mg Thiamine HCl (Vitamin B-1) 100 mg PO DAILY [facility] Last Admin: 12/06/16 08:59 Dose: 100 mg Discontinued Medications Bupropion HCl (Wellbutrin Xl) 150 mg PO DAILY [facility] Last Admin: 12/05/16 08:57 Dose: 150 mg Chlordiazepoxide HCl (Librium) 25 mg PO TID [facility] Last Admin: 12/04/16 09:58 Dose: 25 mg Clonidine HCl (Catapres-Tts 3) 0.3 mg TRDERM Q7D ONE Stop: 12/03/16 00:01 Last Admin: 12/03/16 00:04 Dose: 0.3 mg Enoxaparin Sodium (Lovenox) 40 mg SUBCUT DAILY [facility] Hydromorphone HCl (Dilaudid) 0.5 mg IVPUSH ONETIME ONE Stop: 12/02/16 21:08 Last Admin: 12/02/16 21:20 Dose: 0.5 mg Hydromorphone HCl (Dilaudid) 1 mg IVPUSH Q4H PRN PRN Reason: Pain (severe 7-10) Dextrose/Sodium Chloride (Dextrose 5%-Normal Saline) 1,000 mls @ 999 mls/hr IV ASDIRECTED [facility] Last Admin: 12/02/16 21:16 Dose: 999 mls/hr Thiamine HCl 100 mg/ Sodium (Chloride) 101 mls @ 200 mls/hr IV ONETIME ONE Stop: 12/02/16 21:43 Last Admin: 12/02/16 21:54 Dose: 200 mls/hr Dextrose/Sodium Chloride (Dextrose 5%-1/2 Ns) 1,000 mls @ 125 mls/hr IV ASDIRECTED [facility] Last Admin: 12/03/16 20:48 Dose: 125 mls/hr Magnesium Sulfate 2 gm/ Premix 50 mls @ 25 mls/hr IV ONETIME ONE Stop: 12/03/16 10:29 Last Admin: 12/03/16 08:41 Dose: 25 mls/hr Iron Sucrose 500 mg/ Sodium (Chloride) 250 mls @ 62.5 mls/hr IV ONETIME ONE Stop: 12/05/16 11:59 Last Admin: 12/05/16 08:55 Dose: 62.5 mls/hr Ketorolac Tromethamine (Toradol) 60 mg IM ONETIME ONE Stop: 12/05/16 15:01 Last Admin: 12/05/16 14:03 Dose: 60 mg Levothyroxine Sodium (Levothyroxine) 112 mcg PO ACBREAKFAST [facility] Last Admin: 12/03/16 05:23 Dose: 112 mcg Lidocaine (Lidoderm 5%) 700 mg TOP Q24H [facility] Last Admin: 12/03/16 00:04 Dose: 700 mg Lorazepam (Ativan) 1 mg IVPUSH ONETIME ONE Stop: 12/02/16 21:08 Last Admin: 12/02/16 21:17 Dose: 1 mg Lorazepam (Ativan) 1 mg IVPUSH Q4H PRN; Protocol PRN Reason: Withdrawal Symptoms Magnesium Sulfate (Pharmacy To Dose - Magnesium Replacement) 1 dose .XX ASDIRECTED [facility] Miscellaneous Information (Remove Patch) 1 ea TRDERM Q24H [facility] Last Admin: 12/03/16 13:13 Dose: 1 ea Naproxen (Naprosyn) 375 mg PO Q12HR [facility] Last Admin: 12/05/16 08:57 Dose: 375 mg Oxycodone HCl (Oxycontin) 10 mg PO Q12HR [facility] Last Admin: 12/05/16 08:57 Dose: 10 mg Potassium Chloride (Pharmacy To Dose - Potassium Replacement) 1 dose .XX ASDIRECTED [facility] Potassium Chloride (Potassium Chloride) 40 meq PO ONETIME ONE Stop: 12/05/16 18:35 Last Admin: 12/05/16 19:03 Dose: 40 meq Quetiapine Fumarate (Seroquel) 50 mg PO BEDTIME [facility] Trazodone HCl (Trazodone) 150 mg PO BEDTIME [facility] - Exam Quality Assessment: DVT prophylaxis General: alert, oriented, cooperative, no acute distress HEENT: Pupils equal, Pupils reactive, EOMI, Mucous membr. moist/pink Neck: supple Lungs: Clear to auscultation, Normal respiratory effort Cardiovascular: Regular Rate, Regular Rhythm Abdomen: bowel sounds present, soft, no tenderness, no distension (Female) Exam: Deferred Back Exam: vertebral tenderness (to mid back with palpation this morning) Extremities: no edema Neurological: no new focal deficit Psy/Mental Status: alert, labile mood (tearful, then smiling from one moment to the next during our discussion this morning), withdrawal symptoms (CIWA scores have been around 3). No: suicidal ideation (denies any suicical thoughts/ ideations when asked this morning) - Problem List & Annotations (1) Alcohol dependence with acute alcoholic intoxication SNOMED Code(s): 132366215 Code(s): F10.229 - ALCOHOL DEPENDENCE WITH INTOXICATION, UNSPECIFIED Status : Acute Priority: High Current Visit: Yes Qualifiers: Complication of substance-induced condition: with unspecified complication Qualified Code(s): F10.229 - Alcohol dependence with intoxication, unspecified (2) Compression fracture of first lumbar vertebra SNOMED Code(s): 658112350 Code(s): S32.010A - WEDGE COMPRESSION FRACTURE OF FIRST LUMBAR VERTEBRA, INIT Status: Acute Priority: High Current Visit: Yes Qualifiers: Encounter type: initial encounter Fracture type: closed Qualified Code(s) : S32.010A - Wedge compression fracture of first lumbar vertebra, initial encounter for closed fracture (3) Hypokalemia due to inadequate potassium intake SNOMED Code(s): 27487600 Code(s): E87.6 - HYPOKALEMIA Status: Resolved Priority: High Current Visit: Yes (4) Nicotine dependence SNOMED Code(s): 38873410 Code(s): F17.200 - NICOTINE DEPENDENCE, UNSPECIFIED, UNCOMPLICATED Status: Chronic Priority: High Current Visit: Yes Qualifiers: Nicotine product type: cigarettes Substance use status: uncomplicated Qualified Code(s): F17.210 - Nicotine dependence, cigarettes, uncomplicated (5) Depressive disorder SNOMED Code(s): 80425079 Code(s): F32.9 - MAJOR DEPRESSIVE DISORDER, SINGLE EPISODE, UNSPECIFIED Status: Chronic Priority: High Current Visit: Yes - Problem List Review Problem List Initiated/Reviewed/Updated: Yes - Plan Plan:: Assessment/Plan: Acute: Alcohol Abuse: CIWA score 3-4 now - YOHAN is 0.29 on admit - Drinks 1 gal of vodka daily - CIWA protocol - Supportive care -[facility] to evaluate today for [facility] placement likely tomorrow; has been committed per Riky Esparza [facility] Chronic ETOH Abuse - Drinks for over 6 years but ED notes says 10 years - She has been in chemical rehab in the past few months - She had been seeing Riky Esparza [facility] prior to admission - She wants to detox and inpatient treatment Substance Abuse - Admit to using Marijuana - Most recent use 1 week ago - UDS pos for THC Thrombocytopenia, and macrocytosis -- both Stable - 2/2 Chronic ETOH Use - Continue to monitor - She is not on anticoags - Thiamine and folic acid supplements Anxiety/Depression -Dr. Culp/ Psychiatry consult with recommended medication changes; dc wellbutrin, start prozac- see orders - She follows Psych at [facility] prior to admission - She is not suicidal or homocidal Hypothyroidism, subtherapeutic - TSH is 112 - Increased dose to 137 mcg po daily Compression Fracture of L1 - CT scan finding - Consulted Ortho by Dr. Gould in ED-- Dr. Sagastume - Recommended conservative management; will stop schedule II, only Blythe with 48 hours of Toradol; Marcum brace recommended per Ortho -Working with PT/OT -Pain controlled with current regimen Cervical Spine CT Scan: Lucent Lesion within the dens: Focal Osteopenia vs Osteolytic Lesion - She is post meopausal and carries a hx/o Chronic ETOH Use - Defer outpatient work up by PCP TAO - Pending Guaiac Test - Abnormal Iron Panel - IV Iron Infusion in AM -Start Ferrous sulfate PO Plan: She is clinically stable Continue current treatment Routine AM labs DVT ppx: SCDs GI ppx: PPI Fall/Seizure Precautions SW/CM for d/c planning Additional orders as above Code status: 1 Currently Riky Esparza is 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 At this point, we are waiting for further input. [facility] to screen for NDSH today, for probable transfer/DC to [facility] tomorrow pending eval. LOS>96 hours with slow response to therapy and DC planning. <Delfina Roldan - Last Filed: 12/06/16 18:26> - Patient Data Vitals - most recent: Last Vital Signs Temp 36.7 C 12/06/16 15:18 Pulse 83 12/06/16 15:18 Resp 16 12/06/16 15:18 BP 114/76 12/06/16 15:18 Pulse Ox 98 12/06/16 15:18 I&O - last 24 hours: Intake & Output 12/06/16 12/06/16 12/06/16 06:59 14:59 22:59 Intake Total 509 346 5762 Output Total 250 Balance 245 207 9045 Lab Results last 24 hrs: Laboratory Results - last 24 hr 12/06/16 12/06/16 Range/Units 06:00 06:00 WBC 3.43 L (3.98-10.04) K/mm3 RBC 3.58 L (3.98-5.22) M/mm3 Hgb 9.4 L (11.2-15.7) gm/L Hct 31.1 L (34.1-44.9) % MCV 86.9 (79.4-94.8) fl MCH 26.3 (25.6-32.2) pg MCHC 30.2 L (32.2-35.5) g/dl RDW Std Deviation 68.1 H (36.4-46.3) fL Plt Count 151 L (182-369) K/mm3 MPV 10.7 (9.4-12.3) fl Neut % (Auto) 60.0 (34.0-71.1) % Lymph % (Auto) 28.6 (19.3-51.7) % [place] % (Auto) 6.4 (4.7-12.5) % Eos % (Auto) 3.8 (0.7-5.8) Baso % (Auto) 0.3 (0.1-1.2) % Neut # (Auto) 2.06 (1.56-6.13) K/mm3 Lymph # (Auto) 0.98 L (1.18-3.74) K/mm3 [place] # (Auto) 0.22 L (0.24-0.36) K/mm3 Eos # (Auto) 0.13 (0.04-0.36) K/mm3 Baso # (Auto) 0.01 (0.01-0.08) K/mm3 Sodium 141 (136-145) mEq/L Potassium 4.0 (3.5-5.1) mEq/L Chloride 105 (98-107) mEq/L Carbon Dioxide 28 (21-32) mEq/L Anion Gap 12.0 (5-15) BUN 11 (7-18) mg/dL Creatinine 0.6 (0.55-1.02) mg/dL Est Cr Clr Drug Dosing 81.91 mL/min Estimated GFR (MDRD) > 60 (>60) mL/min BUN/Creatinine Ratio 18.3 H (14-18) Glucose 95 (74-106) mg/dL Calcium 8.7 (8.5-10.1) mg/dL Magnesium 2.1 (1.8-2.4) mg/dl Med Orders - Current: Current Medications Acetaminophen (Tylenol) 650 mg PO Q4H PRN PRN Reason: Pain (Mild 1-3)/fever Last Admin: 12/05/16 22:27 Dose: 650 mg Hydrocodone Bitart/Acetaminophen (Blythe 325-5 Mg) 1 tab PO Q4H PRN PRN Reason: Pain (moderate 4-6) Last Admin: 12/06/16 12:58 Dose: 1 tab Albuterol/Ipratropium (Duoneb 3.0-0.5 Mg/3 Ml) 3 ml NEB Q4H PRN PRN Reason: Shortness Of Breath/wheezing Bisacodyl (Dulcolax) 5 mg PO DAILY PRN PRN Reason: Constipation Last Admin: 12/06/16 16:06 Dose: 5 mg Chlordiazepoxide HCl (Librium) 25 mg PO BID [facility] Last Admin: 12/06/16 08:59 Dose: 25 mg Docusate Sodium (Colace) 100 mg PO BID [facility] Last Admin: 12/06/16 08:59 Dose: 100 mg Fluoxetine HCl (Prozac) 20 mg PO DAILY [facility] Last Admin: 12/06/16 08:59 Dose: 20 mg Folic Acid (Folic Acid) 1 mg PO BEDTIME [facility] Last Admin: 12/05/16 20:13 Dose: 1 mg Hydralazine HCl (Apresoline) 20 mg IVPUSH Q4H PRN PRN Reason: Hypertension Hydromorphone HCl (Dilaudid) 1 mg IVPUSH Q6H PRN PRN Reason: Pain (severe 7-10) Last Admin: 12/04/16 17:21 Dose: 1 mg Promethazine HCl 12.5 mg/ (Sodium Chloride) 50.5 mls @ 100 mls/hr IV Q6H PRN PRN Reason: Nausea/Vomiting Ketorolac Tromethamine (Toradol) 30 mg IVPUSH Q6H [facility] Stop: 12/07/16 15:01 Last Admin: 12/06/16 15:34 Dose: 30 mg Levothyroxine Sodium (Levothroid) 137 mcg PO ACBREAKFAST [facility] Last Admin: 12/06/16 06:57 Dose: 137 mcg Lidocaine (Lidoderm 5%) 700 mg TOP Q24H [facility] Last Admin: 12/05/16 20:12 Dose: 700 mg Lorazepam (Ativan) 2 mg IVPUSH Q4H PRN PRN Reason: Seizures Last Admin: 12/03/16 15:05 Dose: 2 mg Lorazepam (Ativan) 0 mg IVPUSH ASDIRECTED PRN; Protocol PRN Reason: Withdrawal Symptoms Last Admin: 12/04/16 17:22 Dose: 1 mg Magnesium Oxide (Magnesium Oxide) 400 mg PO DAILY [facility] Last Admin: 12/06/16 08:59 Dose: 400 mg Metoprolol Tartrate (Lopressor) 5 mg IVPUSH Q4H PRN PRN Reason: Tachycardia Miscellaneous Information (Remove Patch) 1 ea TRDERM DAILY [facility] Last Admin: 12/06/16 09:00 Dose: 1 ea Miscellaneous Information (Remove Patch) 1 ea TRDERM Q24H [facility] Last Admin: 12/06/16 09:01 Dose: 1 ea Nicotine (Habitrol) 21 mg TRDERM DAILY [facility] Last Admin: 12/06/16 09:00 Dose: 21 mg Ondansetron HCl (Zofran) 4 mg IV Q6H PRN PRN Reason: Nausea/Vomiting Pantoprazole Sodium (Protonix) 40 mg PO BIDAC [facility] Last Admin: 12/06/16 15:35 Dose: 40 mg Polyethylene Glycol (Miralax) 17 gm PO DAILY PRN PRN Reason: Constipation Pramipexole Dihydrochloride (Mirapex) 0.125 mg PO BEDTIME [facility] Last Admin: 12/05/16 20:12 Dose: 0.125 mg Quetiapine Fumarate (Seroquel) 50 mg PO BEDTIME [facility] Last Admin: 12/05/16 20:12 Dose: 50 mg Senna/Docusate Sodium (Senna Plus) 1 tab PO BID PRN PRN Reason: Constipation Last Admin: 12/05/16 19:03 Dose: 1 tab Temazepam (Restoril) 30 mg PO BEDTIME PRN PRN Reason: Insomnia Last Admin: 12/05/16 22:23 Dose: 30 mg Thiamine HCl (Vitamin B-1) 100 mg PO DAILY [facility] Last Admin: 12/06/16 08:59 Dose: 100 mg Discontinued Medications Bupropion HCl (Wellbutrin Xl) 150 mg PO DAILY [facility] Last Admin: 12/05/16 08:57 Dose: 150 mg Chlordiazepoxide HCl (Librium) 25 mg PO TID [facility] Last Admin: 12/04/16 09:58 Dose: 25 mg Clonidine HCl (Catapres-Tts 3) 0.3 mg TRDERM Q7D ONE Stop: 12/03/16 00:01 Last Admin: 12/03/16 00:04 Dose: 0.3 mg Enoxaparin Sodium (Lovenox) 40 mg SUBCUT DAILY [facility] Hydromorphone HCl (Dilaudid) 0.5 mg IVPUSH ONETIME ONE Stop: 12/02/16 21:08 Last Admin: 12/02/16 21:20 Dose: 0.5 mg Hydromorphone HCl (Dilaudid) 1 mg IVPUSH Q4H PRN PRN Reason: Pain (severe 7-10) Dextrose/Sodium Chloride (Dextrose 5%-Normal Saline) 1,000 mls @ 999 mls/hr IV ASDIRECTED [facility] Last Admin: 12/02/16 21:16 Dose: 999 mls/hr Thiamine HCl 100 mg/ Sodium (Chloride) 101 mls @ 200 mls/hr IV ONETIME ONE Stop: 12/02/16 21:43 Last Admin: 12/02/16 21:54 Dose: 200 mls/hr Dextrose/Sodium Chloride (Dextrose 5%-1/2 Ns) 1,000 mls @ 125 mls/hr IV ASDIRECTED [facility] Last Admin: 12/03/16 20:48 Dose: 125 mls/hr Magnesium Sulfate 2 gm/ Premix 50 mls @ 25 mls/hr IV ONETIME ONE Stop: 12/03/16 10:29 Last Admin: 12/03/16 08:41 Dose: 25 mls/hr Iron Sucrose 500 mg/ Sodium (Chloride) 250 mls @ 62.5 mls/hr IV ONETIME ONE Stop: 12/05/16 11:59 Last Admin: 12/05/16 08:55 Dose: 62.5 mls/hr Ketorolac Tromethamine (Toradol) 60 mg IM ONETIME ONE Stop: 12/05/16 15:01 Last Admin: 12/05/16 14:03 Dose: 60 mg Levothyroxine Sodium (Levothyroxine) 112 mcg PO ACBREAKFAST [facility] Last Admin: 12/03/16 05:23 Dose: 112 mcg Lidocaine (Lidoderm 5%) 700 mg TOP Q24H [facility] Last Admin: 12/03/16 00:04 Dose: 700 mg Lorazepam (Ativan) 1 mg IVPUSH ONETIME ONE Stop: 12/02/16 21:08 Last Admin: 12/02/16 21:17 Dose: 1 mg Lorazepam (Ativan) 1 mg IVPUSH Q4H PRN; Protocol PRN Reason: Withdrawal Symptoms Magnesium Sulfate (Pharmacy To Dose - Magnesium Replacement) 1 dose .XX ASDIRECTED [facility] Miscellaneous Information (Remove Patch) 1 ea TRDERM Q24H [facility] Last Admin: 12/03/16 13:13 Dose: 1 ea Naproxen (Naprosyn) 375 mg PO Q12HR [facility] Last Admin: 12/05/16 08:57 Dose: 375 mg Oxycodone HCl (Oxycontin) 10 mg PO Q12HR [facility] Last Admin: 12/05/16 08:57 Dose: 10 mg Potassium Chloride (Pharmacy To Dose - Potassium Replacement) 1 dose .XX ASDIRECTED [facility] Potassium Chloride (Potassium Chloride) 40 meq PO ONETIME ONE Stop: 12/05/16 18:35 Last Admin: 12/05/16 19:03 Dose: 40 meq Quetiapine Fumarate (Seroquel) 50 mg PO BEDTIME [facility] Trazodone HCl (Trazodone) 150 mg PO BEDTIME [facility] - Problem List & Annotations (1) Alcohol dependence with acute alcoholic intoxication SNOMED Code(s): 648057394 Code(s): F10.229 - ALCOHOL DEPENDENCE WITH INTOXICATION, UNSPECIFIED Status : Acute Priority: High Current Visit: Yes Qualifiers: Complication of substance-induced condition: with unspecified complication Qualified Code(s): F10.229 - Alcohol dependence with intoxication, unspecified (2) Compression fracture of first lumbar vertebra SNOMED Code(s): 295439681 Code(s): S32.010A - WEDGE COMPRESSION FRACTURE OF FIRST LUMBAR VERTEBRA, INIT Status: Acute Priority: High Current Visit: Yes Qualifiers: Encounter type: initial encounter Fracture type: closed Qualified Code(s) : S32.010A - Wedge compression fracture of first lumbar vertebra, initial encounter for closed fracture (3) Hypokalemia due to inadequate potassium intake SNOMED Code(s): 55530422 Code(s): E87.6 - HYPOKALEMIA Status: Resolved Priority: High Current Visit: Yes (4) Metabolic acidosis with increased anion gap and accumulation of organic acids SNOMED Code(s): 43144178 Code(s): E87.2 - ACIDOSIS Status: Acute Current Visit: Yes (5) Nicotine dependence SNOMED Code(s): 03064021 Code(s): F17.200 - NICOTINE DEPENDENCE, UNSPECIFIED, UNCOMPLICATED Status: Chronic Priority: High Current Visit: Yes Qualifiers: Nicotine product type: cigarettes Substance use status: uncomplicated Qualified Code(s): F17.210 - Nicotine dependence, cigarettes, uncomplicated (6) Alcohol abuse SNOMED Code(s): 27951068 Code(s): F10.10 - ALCOHOL ABUSE, UNCOMPLICATED Status: Acute Current Visit: No (7) Alcohol intoxication SNOMED Code(s): 18459385 Code(s): F10.129 - ALCOHOL ABUSE WITH INTOXICATION, UNSPECIFIED Status: Acute Current Visit: No - My Orders Last 24 Hours: My Active Orders 12/05/16 21:00 Ketorolac [Toradol] 30 mg IVPUSH Q6H - Plan Plan:: DC early next week; formal psych consult requested, strongly suspect Borderline Personality Disorder,
[2016-12-06] MEDS: Acetaminophen/HYDROcodone 325-5 MG Tab PO PRN ×2 (12:58→23:05)
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
[2016-12-06] MEDS: Folic Acid 1 MG Tab PO SCH (21:17)
[2016-12-06] MEDS: Lidocaine 5% 700 MG Patch TOP SCH (21:18)
[2016-12-06] MEDS: QUEtiapine 25 MG Tab PO SCH (21:18)
[2016-12-06] MEDS: Pramipexole 0.25 MG Tab PO SCH (21:19)
[2016-12-06] MEDS: Temazepam 30 MG Cap PO PRN (23:05)
[2016-12-07] MEDS: Ketorolac 30 MG/ML SDV IVPUSH SCH ×3 (03:53→14:20)
[2016-12-07] MEDS: Acetaminophen/HYDROcodone 325-5 MG Tab PO PRN ×2 (06:26→20:49)
[2016-12-07] MEDS: Pantoprazole 40 MG Tab.CR PO SCH ×3 (06:27→15:00)
[2016-12-07] MEDS: Nicotine 21 MG/24 Hr Patch TRDERM SCH (08:15)
[2016-12-07] MEDS: Magnesium Oxide 400 MG Tab PO SCH (08:15)
[2016-12-07] MEDS: FLUoxetine 20 MG Cap PO SCH (08:15)
[2016-12-07] MEDS: chlordiazePOXIDE 25 MG Cap PO SCH ×2 (08:15→20:48)
[2016-12-07] MEDS: Thiamine 100 MG Tab PO SCH (08:15)
[2016-12-07] MEDS: Docusate Sodium 100 MG Cap PO SCH ×2 (08:15→20:47)
[2016-12-07] MEDS: NICOTINE - Remove Patch TRDERM SCH (08:16)
--- NOTE | 2016-12-07 15:12 | PCM.PN ---
- General Info Date of Service: 12/07/16 Functional Status: Reports: tolerating diet, ambulating, urinating - Review of Systems General: Reports: No Symptoms HEENT: Reports: no symptoms Pulmonary: Reports: no symptoms Cardiovascular: Reports: No Symptoms Gastrointestinal: Reports: No symptoms Genitourinary: Reports: no symptoms Musculoskeletal: Reports: no symptoms Skin: Reports: no symptoms Neurological: Reports: No Symptoms Psychiatric: Reports: no symptoms - Patient Data Vitals - most recent: Last Vital Signs Temp 37.0 C 12/07/16 14:47 Pulse 83 12/07/16 14:47 Resp 20 12/07/16 14:47 BP 93/59 L 12/07/16 14:47 Pulse Ox 99 12/07/16 14:47 Weight - most recent: 65.544 kg I&O - last 24 hours: Intake & Output 12/07/16 12/07/16 12/07/16 06:59 14:59 22:59 Intake Total 490 Balance 490 Med Orders - Current: Current Medications Acetaminophen (Tylenol) 650 mg PO Q4H PRN PRN Reason: Pain (Mild 1-3)/fever Last Admin: 12/05/16 22:27 Dose: 650 mg Hydrocodone Bitart/Acetaminophen ([place] 325-5 Mg) 1 tab PO Q4H PRN PRN Reason: Pain (moderate 4-6) Last Admin: 12/07/16 06:26 Dose: 1 tab Albuterol/Ipratropium (Duoneb 3.0-0.5 Mg/3 Ml) 3 ml NEB Q4H PRN PRN Reason: Shortness Of Breath/wheezing Bisacodyl (Dulcolax) 5 mg PO DAILY PRN PRN Reason: Constipation Last Admin: 12/06/16 16:06 Dose: 5 mg Chlordiazepoxide HCl (Librium) 25 mg PO BID [facility] Last Admin: 12/07/16 08:15 Dose: 25 mg Docusate Sodium (Colace) 100 mg PO BID [facility] Last Admin: 12/07/16 08:15 Dose: 100 mg Fluoxetine HCl (Prozac) 20 mg PO DAILY [facility] Last Admin: 12/07/16 08:15 Dose: 20 mg Folic Acid (Folic Acid) 1 mg PO BEDTIME [facility] Last Admin: 12/06/16 21:17 Dose: 1 mg Hydralazine HCl (Apresoline) 20 mg IVPUSH Q4H PRN PRN Reason: Hypertension Hydromorphone HCl (Dilaudid) 1 mg IVPUSH Q6H PRN PRN Reason: Pain (severe 7-10) Last Admin: 12/04/16 17:21 Dose: 1 mg Promethazine HCl 12.5 mg/ (Sodium Chloride) 50.5 mls @ 100 mls/hr IV Q6H PRN PRN Reason: Nausea/Vomiting Levothyroxine Sodium (Levothroid) 137 mcg PO ACBREAKFAST [facility] Last Admin: 12/07/16 06:27 Dose: 137 mcg Lidocaine (Lidoderm 5%) 700 mg TOP Q24H [facility] Last Admin: 12/06/16 21:18 Dose: 700 mg Lorazepam (Ativan) 2 mg IVPUSH Q4H PRN PRN Reason: Seizures Last Admin: 12/03/16 15:05 Dose: 2 mg Lorazepam (Ativan) 0 mg IVPUSH ASDIRECTED PRN; Protocol PRN Reason: Withdrawal Symptoms Last Admin: 12/04/16 17:22 Dose: 1 mg Magnesium Oxide (Magnesium Oxide) 400 mg PO DAILY [facility] Last Admin: 12/07/16 08:15 Dose: 400 mg Metoprolol Tartrate (Lopressor) 5 mg IVPUSH Q4H PRN PRN Reason: Tachycardia Miscellaneous Information (Remove Patch) 1 ea TRDERM DAILY [facility] Last Admin: 12/07/16 08:16 Dose: 1 ea Miscellaneous Information (Remove Patch) 1 ea TRDERM Q24H [facility] Last Admin: 12/07/16 08:16 Dose: 1 ea Nicotine (Habitrol) 21 mg TRDERM DAILY [facility] Last Admin: 12/07/16 08:15 Dose: 21 mg Ondansetron HCl (Zofran) 4 mg IV Q6H PRN PRN Reason: Nausea/Vomiting Pantoprazole Sodium (Protonix) 40 mg PO BIDAC [facility] Last Admin: 12/07/16 15:00 Dose: Not Given Polyethylene Glycol (Miralax) 17 gm PO DAILY PRN PRN Reason: Constipation Last Admin: 12/07/16 08:52 Dose: 17 gm Pramipexole Dihydrochloride (Mirapex) 0.125 mg PO BEDTIME [facility] Last Admin: 12/06/16 21:19 Dose: 0.125 mg Quetiapine Fumarate (Seroquel) 50 mg PO BEDTIME [facility] Last Admin: 12/06/16 21:18 Dose: 50 mg Senna/Docusate Sodium (Senna Plus) 1 tab PO BID PRN PRN Reason: Constipation Last Admin: 12/05/16 19:03 Dose: 1 tab Temazepam (Restoril) 30 mg PO BEDTIME PRN PRN Reason: Insomnia Last Admin: 12/06/16 23:05 Dose: 30 mg Thiamine HCl (Vitamin B-1) 100 mg PO DAILY [facility] Last Admin: 12/07/16 08:15 Dose: 100 mg Discontinued Medications Bupropion HCl (Wellbutrin Xl) 150 mg PO DAILY [facility] Last Admin: 12/05/16 08:57 Dose: 150 mg Chlordiazepoxide HCl (Librium) 25 mg PO TID [facility] Last Admin: 12/04/16 09:58 Dose: 25 mg Clonidine HCl (Catapres-Tts 3) 0.3 mg TRDERM Q7D ONE Stop: 12/03/16 00:01 Last Admin: 12/03/16 00:04 Dose: 0.3 mg Enoxaparin Sodium (Lovenox) 40 mg SUBCUT DAILY [facility] Hydromorphone HCl (Dilaudid) 0.5 mg IVPUSH ONETIME ONE Stop: 12/02/16 21:08 Last Admin: 12/02/16 21:20 Dose: 0.5 mg Hydromorphone HCl (Dilaudid) 1 mg IVPUSH Q4H PRN PRN Reason: Pain (severe 7-10) Dextrose/Sodium Chloride (Dextrose 5%-Normal Saline) 1,000 mls @ 999 mls/hr IV ASDIRECTED [facility] Last Admin: 12/02/16 21:16 Dose: 999 mls/hr Thiamine HCl 100 mg/ Sodium (Chloride) 101 mls @ 200 mls/hr IV ONETIME ONE Stop: 12/02/16 21:43 Last Admin: 12/02/16 21:54 Dose: 200 mls/hr Dextrose/Sodium Chloride (Dextrose 5%-1/2 Ns) 1,000 mls @ 125 mls/hr IV ASDIRECTED [facility] Last Admin: 12/03/16 20:48 Dose: 125 mls/hr Magnesium Sulfate 2 gm/ Premix 50 mls @ 25 mls/hr IV ONETIME ONE Stop: 12/03/16 10:29 Last Admin: 12/03/16 08:41 Dose: 25 mls/hr Iron Sucrose 500 mg/ Sodium (Chloride) 250 mls @ 62.5 mls/hr IV ONETIME ONE Stop: 12/05/16 11:59 Last Admin: 12/05/16 08:55 Dose: 62.5 mls/hr Ketorolac Tromethamine (Toradol) 60 mg IM ONETIME ONE Stop: 12/05/16 15:01 Last Admin: 12/05/16 14:03 Dose: 60 mg Ketorolac Tromethamine (Toradol) 30 mg IVPUSH Q6H LOVE Stop: 12/07/16 15:01 Last Admin: 12/07/16 14:20 Dose: 30 mg Levothyroxine Sodium (Levothyroxine) 112 mcg PO ACBREAKFAST [facility] Last Admin: 12/03/16 05:23 Dose: 112 mcg Lidocaine (Lidoderm 5%) 700 mg TOP Q24H [facility] Last Admin: 12/03/16 00:04 Dose: 700 mg Lorazepam (Ativan) 1 mg IVPUSH ONETIME ONE Stop: 12/02/16 21:08 Last Admin: 12/02/16 21:17 Dose: 1 mg Lorazepam (Ativan) 1 mg IVPUSH Q4H PRN; Protocol PRN Reason: Withdrawal Symptoms Magnesium Sulfate (Pharmacy To Dose - Magnesium Replacement) 1 dose .XX ASDIRECTED [facility] Miscellaneous Information (Remove Patch) 1 ea TRDERM Q24H [facility] Last Admin: 12/03/16 13:13 Dose: 1 ea Naproxen (Naprosyn) 375 mg PO Q12HR [facility] Last Admin: 12/05/16 08:57 Dose: 375 mg Oxycodone HCl (Oxycontin) 10 mg PO Q12HR [facility] Last Admin: 12/05/16 08:57 Dose: 10 mg Potassium Chloride (Pharmacy To Dose - Potassium Replacement) 1 dose .XX ASDIRECTED [facility] Potassium Chloride (Potassium Chloride) 40 meq PO ONETIME ONE Stop: 12/05/16 18:35 Last Admin: 12/05/16 19:03 Dose: 40 meq Quetiapine Fumarate (Seroquel) 50 mg PO BEDTIME LOVE Trazodone HCl (Trazodone) 150 mg PO BEDTIME LOVE - Exam Quality Assessment: DVT prophylaxis General: alert, oriented, no acute distress HEENT: Pupils equal, Pupils reactive, EOMI Neck: supple, trachea midline Lungs: Decreased breath sounds Cardiovascular: Regular Rate, Regular Rhythm Abdomen: bowel sounds present, soft, no tenderness, no distension (Female) Exam: Deferred Back Exam: normal inspection Extremities: normal pulses Skin: warm Neurological: no new focal deficit Psy/Mental Status: alert - Problem List & Annotations (1) Alcohol dependence with acute alcoholic intoxication SNOMED Code(s): 228713213 Code(s): F10.229 - ALCOHOL DEPENDENCE WITH INTOXICATION, UNSPECIFIED Status : Acute Priority: High Current Visit: Yes Qualifiers: Complication of substance-induced condition: with unspecified complication Qualified Code(s): F10.229 - Alcohol dependence with intoxication, unspecified (2) Compression fracture of first lumbar vertebra SNOMED Code(s): 579239244 Code(s): S32.010A - WEDGE COMPRESSION FRACTURE OF FIRST LUMBAR VERTEBRA, INIT Status: Acute Priority: High Current Visit: Yes Qualifiers: Encounter type: initial encounter Fracture type: closed Qualified Code(s) : S32.010A - Wedge compression fracture of first lumbar vertebra, initial encounter for closed fracture (3) Hypokalemia due to inadequate potassium intake SNOMED Code(s): 34011699 Code(s): E87.6 - HYPOKALEMIA Status: Resolved Priority: High Current Visit: Yes (4) Metabolic acidosis with increased anion gap and accumulation of organic acids SNOMED Code(s): 19203924 Code(s): E87.2 - ACIDOSIS Status: Acute Current Visit: Yes (5) Nicotine dependence SNOMED Code(s): 91297797 Code(s): F17.200 - NICOTINE DEPENDENCE, UNSPECIFIED, UNCOMPLICATED Status: Chronic Priority: High Current Visit: Yes Qualifiers: Nicotine product type: cigarettes Substance use status: uncomplicated Qualified Code(s): F17.210 - Nicotine dependence, cigarettes, uncomplicated (6) Alcohol abuse SNOMED Code(s): 86725621 Code(s): F10.10 - ALCOHOL ABUSE, UNCOMPLICATED Status: Acute Current Visit: No (7) Alcohol intoxication SNOMED Code(s): 48632293 Code(s): F10.129 - ALCOHOL ABUSE WITH INTOXICATION, UNSPECIFIED Status: Acute Current Visit: No - Problem List Review Problem List Initiated/Reviewed/Updated: Yes - Plan Plan:: Impression: ETOH abuse acute on chronic Detox as inpatient [facility] TBD Substance abuse THC Anxiety/Depression Med rec per psych Hypothyrpid Acute L1 Fx, NONCOMPLIANT with back brace Abnormal Cervical Spine CT Plan: Continue current treatment DVT prophylaxis Fall/SZ precautions [facility] placement next week LOS>96 hours DC early next week; formal psych consult requested, strongly suspect Borderline Personality Disorder,
[2016-12-07] MEDS ORDERED: Bisacodyl 10 MG Supp RECTAL ONE (16:23)
[2016-12-07] MEDS: Folic Acid 1 MG Tab PO SCH (20:47)
[2016-12-07] MEDS: Lidocaine 5% 700 MG Patch TOP SCH (20:48)
[2016-12-07] MEDS: Pramipexole 0.25 MG Tab PO SCH (20:48)
[2016-12-07] MEDS: QUEtiapine 25 MG Tab PO SCH (20:49)
[2016-12-07] MEDS: Temazepam 30 MG Cap PO PRN (20:50)
[2016-12-08] MEDS: Acetaminophen/HYDROcodone 325-5 MG Tab PO PRN ×3 (06:52→20:39)
[2016-12-08] MEDS: Pantoprazole 40 MG Tab.CR PO SCH ×2 (06:52→15:28)
[2016-12-08] MEDS: Thiamine 100 MG Tab PO SCH (08:47)
[2016-12-08] MEDS: Docusate Sodium 100 MG Cap PO SCH ×2 (08:48→20:17)
[2016-12-08] MEDS: chlordiazePOXIDE 25 MG Cap PO SCH ×2 (08:48→20:15)
[2016-12-08] MEDS: FLUoxetine 20 MG Cap PO SCH (08:48)
[2016-12-08] MEDS: Nicotine 21 MG/24 Hr Patch TRDERM SCH (08:49)
[2016-12-08] MEDS: Magnesium Oxide 400 MG Tab PO SCH (08:49)
[2016-12-08] MEDS: NICOTINE - Remove Patch TRDERM SCH (08:50)
--- NOTE | 2016-12-08 15:24 | PCM.PN ---
- General Info Date of Service: 12/08/16 Functional Status: Reports: tolerating diet, ambulating, urinating - Review of Systems General: Reports: No Symptoms HEENT: Reports: no symptoms Pulmonary: Reports: no symptoms Cardiovascular: Reports: No Symptoms Gastrointestinal: Reports: No symptoms Genitourinary: Reports: no symptoms Musculoskeletal: Reports: no symptoms Skin: Reports: no symptoms Neurological: Reports: No Symptoms Psychiatric: Reports: no symptoms - Patient Data Vitals - most recent: Last Vital Signs Temp 37.2 C 12/08/16 07:59 Pulse 68 12/08/16 07:59 Resp 16 12/08/16 07:59 BP 98/73 12/08/16 07:59 Pulse Ox 97 12/08/16 07:59 Weight - most recent: 65.589 kg I&O - last 24 hours: Intake & Output 12/08/16 12/08/16 12/08/16 06:59 14:59 22:59 Intake Total 200 Balance 200 Yovany Results last 24 hrs: Microbiology 12/07/16 17:24 Stool Occult Blood (YOVANY) - Final Stool / Feces NEGATIVE OCCULT BLOOD Med Orders - Current: Current Medications Acetaminophen (Tylenol) 650 mg PO Q4H PRN PRN Reason: Pain (Mild 1-3)/fever Last Admin: 12/05/16 22:27 Dose: 650 mg Hydrocodone Bitart/Acetaminophen ([place] 325-5 Mg) 1 tab PO Q4H PRN PRN Reason: Pain (moderate 4-6) Last Admin: 12/08/16 06:52 Dose: 1 tab Albuterol/Ipratropium (Duoneb 3.0-0.5 Mg/3 Ml) 3 ml NEB Q4H PRN PRN Reason: Shortness Of Breath/wheezing Bisacodyl (Dulcolax) 5 mg PO DAILY PRN PRN Reason: Constipation Last Admin: 12/06/16 16:06 Dose: 5 mg Chlordiazepoxide HCl (Librium) 25 mg PO BID [facility] Last Admin: 12/08/16 08:48 Dose: 25 mg Docusate Sodium (Colace) 100 mg PO BID [facility] Last Admin: 12/08/16 08:48 Dose: 100 mg Fluoxetine HCl (Prozac) 20 mg PO DAILY [facility] Last Admin: 12/08/16 08:48 Dose: 20 mg Folic Acid (Folic Acid) 1 mg PO BEDTIME [facility] Last Admin: 12/07/16 20:47 Dose: 1 mg Hydralazine HCl (Apresoline) 20 mg IVPUSH Q4H PRN PRN Reason: Hypertension Hydromorphone HCl (Dilaudid) 1 mg IVPUSH Q6H PRN PRN Reason: Pain (severe 7-10) Last Admin: 12/04/16 17:21 Dose: 1 mg Promethazine HCl 12.5 mg/ (Sodium Chloride) 50.5 mls @ 100 mls/hr IV Q6H PRN PRN Reason: Nausea/Vomiting Levothyroxine Sodium (Levothroid) 137 mcg PO ACBREAKFAST [facility] Last Admin: 12/08/16 06:52 Dose: 137 mcg Lidocaine (Lidoderm 5%) 700 mg TOP Q24H [facility] Last Admin: 12/07/16 20:48 Dose: 700 mg Lorazepam (Ativan) 2 mg IVPUSH Q4H PRN PRN Reason: Seizures Last Admin: 12/03/16 15:05 Dose: 2 mg Lorazepam (Ativan) 0 mg IVPUSH ASDIRECTED PRN; Protocol PRN Reason: Withdrawal Symptoms Last Admin: 12/04/16 17:22 Dose: 1 mg Magnesium Oxide (Magnesium Oxide) 400 mg PO DAILY [facility] Last Admin: 12/08/16 08:49 Dose: 400 mg Metoprolol Tartrate (Lopressor) 5 mg IVPUSH Q4H PRN PRN Reason: Tachycardia Miscellaneous Information (Remove Patch) 1 ea TRDERM DAILY [facility] Last Admin: 12/08/16 08:50 Dose: 1 ea Miscellaneous Information (Remove Patch) 1 ea TRDERM Q24H [facility] Last Admin: 12/08/16 08:50 Dose: 1 ea Nicotine (Habitrol) 21 mg TRDERM DAILY [facility] Last Admin: 12/08/16 08:49 Dose: 21 mg Ondansetron HCl (Zofran) 4 mg IV Q6H PRN PRN Reason: Nausea/Vomiting Pantoprazole Sodium (Protonix) 40 mg PO BIDAC [facility] Last Admin: 12/08/16 06:52 Dose: 40 mg Polyethylene Glycol (Miralax) 17 gm PO DAILY PRN PRN Reason: Constipation Last Admin: 12/07/16 08:52 Dose: 17 gm Pramipexole Dihydrochloride (Mirapex) 0.125 mg PO BEDTIME [facility] Last Admin: 12/07/16 20:48 Dose: 0.125 mg Quetiapine Fumarate (Seroquel) 50 mg PO BEDTIME [facility] Last Admin: 12/07/16 20:49 Dose: 50 mg Senna/Docusate Sodium (Senna Plus) 1 tab PO BID PRN PRN Reason: Constipation Last Admin: 12/05/16 19:03 Dose: 1 tab Temazepam (Restoril) 30 mg PO BEDTIME PRN PRN Reason: Insomnia Last Admin: 12/07/16 20:50 Dose: 30 mg Thiamine HCl (Vitamin B-1) 100 mg PO DAILY [facility] Last Admin: 12/08/16 08:47 Dose: 100 mg Discontinued Medications Bisacodyl (Dulcolax) 10 mg RECTAL ONETIME ONE Stop: 12/07/16 16:24 Last Admin: 12/07/16 16:41 Dose: 10 mg Bupropion HCl (Wellbutrin Xl) 150 mg PO DAILY [facility] Last Admin: 12/05/16 08:57 Dose: 150 mg Chlordiazepoxide HCl (Librium) 25 mg PO TID [facility] Last Admin: 12/04/16 09:58 Dose: 25 mg Clonidine HCl (Catapres-Tts 3) 0.3 mg TRDERM Q7D ONE Stop: 12/03/16 00:01 Last Admin: 12/03/16 00:04 Dose: 0.3 mg Enoxaparin Sodium (Lovenox) 40 mg SUBCUT DAILY [facility] Hydromorphone HCl (Dilaudid) 0.5 mg IVPUSH ONETIME ONE Stop: 12/02/16 21:08 Last Admin: 12/02/16 21:20 Dose: 0.5 mg Hydromorphone HCl (Dilaudid) 1 mg IVPUSH Q4H PRN PRN Reason: Pain (severe 7-10) Dextrose/Sodium Chloride (Dextrose 5%-Normal Saline) 1,000 mls @ 999 mls/hr IV ASDIRECTED [facility] Last Admin: 12/02/16 21:16 Dose: 999 mls/hr Thiamine HCl 100 mg/ Sodium (Chloride) 101 mls @ 200 mls/hr IV ONETIME ONE Stop: 12/02/16 21:43 Last Admin: 12/02/16 21:54 Dose: 200 mls/hr Dextrose/Sodium Chloride (Dextrose 5%-1/2 Ns) 1,000 mls @ 125 mls/hr IV ASDIRECTED [facility] Last Admin: 12/03/16 20:48 Dose: 125 mls/hr Magnesium Sulfate 2 gm/ Premix 50 mls @ 25 mls/hr IV ONETIME ONE Stop: 12/03/16 10:29 Last Admin: 12/03/16 08:41 Dose: 25 mls/hr Iron Sucrose 500 mg/ Sodium (Chloride) 250 mls @ 62.5 mls/hr IV ONETIME ONE Stop: 12/05/16 11:59 Last Admin: 12/05/16 08:55 Dose: 62.5 mls/hr Ketorolac Tromethamine (Toradol) 60 mg IM ONETIME ONE Stop: 12/05/16 15:01 Last Admin: 12/05/16 14:03 Dose: 60 mg Ketorolac Tromethamine (Toradol) 30 mg IVPUSH Q6H [facility] Stop: 12/07/16 15:01 Last Admin: 12/07/16 14:20 Dose: 30 mg Levothyroxine Sodium (Levothyroxine) 112 mcg PO ACBREAKFAST [facility] Last Admin: 12/03/16 05:23 Dose: 112 mcg Lidocaine (Lidoderm 5%) 700 mg TOP Q24H [facility] Last Admin: 12/03/16 00:04 Dose: 700 mg Lorazepam (Ativan) 1 mg IVPUSH ONETIME ONE Stop: 12/02/16 21:08 Last Admin: 12/02/16 21:17 Dose: 1 mg Lorazepam (Ativan) 1 mg IVPUSH Q4H PRN; Protocol PRN Reason: Withdrawal Symptoms Magnesium Sulfate (Pharmacy To Dose - Magnesium Replacement) 1 dose .XX ASDIRECTED [facility] Miscellaneous Information (Remove Patch) 1 ea TRDERM Q24H [facility] Last Admin: 12/03/16 13:13 Dose: 1 ea Naproxen (Naprosyn) 375 mg PO Q12HR [facility] Last Admin: 12/05/16 08:57 Dose: 375 mg Oxycodone HCl (Oxycontin) 10 mg PO Q12HR [facility] Last Admin: 12/05/16 08:57 Dose: 10 mg Potassium Chloride (Pharmacy To Dose - Potassium Replacement) 1 dose .XX ASDIRECTED [facility] Potassium Chloride (Potassium Chloride) 40 meq PO ONETIME ONE Stop: 12/05/16 18:35 Last Admin: 12/05/16 19:03 Dose: 40 meq Quetiapine Fumarate (Seroquel) 50 mg PO BEDTIME [facility] Trazodone HCl (Trazodone) 150 mg PO BEDTIME [facility] - Exam Quality Assessment: DVT prophylaxis General: alert, oriented, cooperative, no acute distress HEENT: Pupils equal, Pupils reactive, EOMI Neck: supple, trachea midline, no JVD Lungs: Clear to auscultation, Normal respiratory effort Cardiovascular: Regular Rate, Irregular Rhythm Abdomen: bowel sounds present, soft, no tenderness, no distension (Female) Exam: Deferred Back Exam: normal inspection Extremities: normal pulses Skin: warm Neurological: no new focal deficit Psy/Mental Status: alert, depressed. No: normal affect - Problem List & Annotations (1) Alcohol dependence with acute alcoholic intoxication SNOMED Code(s): 562894391 Code(s): F10.229 - ALCOHOL DEPENDENCE WITH INTOXICATION, UNSPECIFIED Status : Acute Priority: High Current Visit: Yes Qualifiers: Complication of substance-induced condition: with unspecified complication Qualified Code(s): F10.229 - Alcohol dependence with intoxication, unspecified (2) Compression fracture of first lumbar vertebra SNOMED Code(s): 287699155 Code(s): S32.010A - WEDGE COMPRESSION FRACTURE OF FIRST LUMBAR VERTEBRA, INIT Status: Acute Priority: High Current Visit: Yes Qualifiers: Encounter type: initial encounter Fracture type: closed Qualified Code(s) : S32.010A - Wedge compression fracture of first lumbar vertebra, initial encounter for closed fracture (3) Hypokalemia due to inadequate potassium intake SNOMED Code(s): 31839522 Code(s): E87.6 - HYPOKALEMIA Status: Resolved Priority: High Current Visit: Yes (4) Metabolic acidosis with increased anion gap and accumulation of organic acids SNOMED Code(s): 62378174 Code(s): E87.2 - ACIDOSIS Status: Acute Current Visit: Yes (5) Nicotine dependence SNOMED Code(s): 44910896 Code(s): F17.200 - NICOTINE DEPENDENCE, UNSPECIFIED, UNCOMPLICATED Status: Chronic Priority: High Current Visit: Yes Qualifiers: Nicotine product type: cigarettes Substance use status: uncomplicated Qualified Code(s): F17.210 - Nicotine dependence, cigarettes, uncomplicated (6) Alcohol abuse SNOMED Code(s): 87195231 Code(s): F10.10 - ALCOHOL ABUSE, UNCOMPLICATED Status: Acute Current Visit: No (7) Alcohol intoxication SNOMED Code(s): 43057549 Code(s): F10.129 - ALCOHOL ABUSE WITH INTOXICATION, UNSPECIFIED Status: Acute Current Visit: No - Problem List Review Problem List Initiated/Reviewed/Updated: Yes - Plan Plan:: Impression: ETOH abuse acute on chronic Detox as inpatient [facility] TBD Substance abuse THC Anxiety/Depression Med rec per psych Hypothyrpid Acute L1 Fx, NONCOMPLIANT with back brace Abnormal Cervical Spine CT Plan: Continue current treatment DVT prophylaxis Fall/SZ precautions [facility] placement, pending DC early next week. LOS>96 hours
[2016-12-08] MEDS: Lidocaine 5% 700 MG Patch TOP SCH (20:07)
[2016-12-08] MEDS: Pramipexole 0.25 MG Tab PO SCH (20:15)
[2016-12-08] MEDS: Folic Acid 1 MG Tab PO SCH (20:17)
[2016-12-08] MEDS: QUEtiapine 25 MG Tab PO SCH (20:18)
[2016-12-08] MEDS: Temazepam 30 MG Cap PO PRN (22:01)
[2016-12-09] MEDS: Acetaminophen/HYDROcodone 325-5 MG Tab PO PRN ×5 (01:39→22:08)
[2016-12-09] MEDS: Pantoprazole 40 MG Tab.CR PO SCH ×2 (05:14→15:33)
[2016-12-09] MEDS: Nicotine 21 MG/24 Hr Patch TRDERM SCH (08:40)
[2016-12-09] MEDS: Docusate Sodium 100 MG Cap PO SCH ×2 (08:40→22:01)
[2016-12-09] MEDS: chlordiazePOXIDE 25 MG Cap PO SCH (08:42)
[2016-12-09] MEDS: Magnesium Oxide 400 MG Tab PO SCH (08:42)
[2016-12-09] MEDS: FLUoxetine 20 MG Cap PO SCH (08:42)
[2016-12-09] MEDS: Thiamine 100 MG Tab PO SCH (08:45)
[2016-12-09] MEDS: NICOTINE - Remove Patch TRDERM SCH (08:47)
--- NOTE | 2016-12-09 08:53 | PCM.PN ---
<Nina Rodriugez - Last Filed: 12/09/16 08:51> - General Info Date of Service: 12/09/16 Admission Dx/Problem (Free Text): Admission Diagnosis/Problem Admission Diagnosis/Problem Compression fracture of lumbar spine, alcohol withdrawl and abuse Veena is a 51yo female seen this morning accompanied by nursing. Functional Status: Reports: pain controlled, tolerating diet, ambulating, urinating. Denies: new symptoms - Review of Systems General: Reports: No Symptoms HEENT: Reports: no symptoms Pulmonary: Reports: no symptoms Cardiovascular: Reports: No Symptoms Gastrointestinal: Reports: No symptoms Genitourinary: Reports: no symptoms Musculoskeletal: Reports: no symptoms Skin: Reports: no symptoms Neurological: Reports: No Symptoms Psychiatric: Reports: no symptoms, mood lability - Patient Data Vitals - most recent: Last Vital Signs Temp 98.1 F 12/09/16 07:40 Pulse 73 12/09/16 07:40 Resp 16 12/09/16 07:40 BP 101/74 12/09/16 07:40 Pulse Ox 97 12/09/16 07:40 Weight - most recent: 64.864 kg I&O - last 24 hours: Intake & Output 12/08/16 12/09/16 12/09/16 22:59 06:59 14:59 Intake Total 710 275 Output Total 750 Balance -40 275 Med Orders - Current: Current Medications Acetaminophen (Tylenol) 650 mg PO Q4H PRN PRN Reason: Pain (Mild 1-3)/fever Last Admin: 12/05/16 22:27 Dose: 650 mg Hydrocodone Bitart/Acetaminophen ([place] 325-5 Mg) 1 tab PO Q4H PRN PRN Reason: Pain (moderate 4-6) Last Admin: 12/09/16 01:39 Dose: 1 tab Albuterol/Ipratropium (Duoneb 3.0-0.5 Mg/3 Ml) 3 ml NEB Q4H PRN PRN Reason: Shortness Of Breath/wheezing Bisacodyl (Dulcolax) 5 mg PO DAILY PRN PRN Reason: Constipation Last Admin: 12/06/16 16:06 Dose: 5 mg Docusate Sodium (Colace) 100 mg PO BID [facility] Last Admin: 12/09/16 08:40 Dose: 100 mg Fluoxetine HCl (Prozac) 20 mg PO DAILY [facility] Last Admin: 12/09/16 08:42 Dose: 20 mg Folic Acid (Folic Acid) 1 mg PO BEDTIME [facility] Last Admin: 12/08/16 20:17 Dose: 1 mg Hydralazine HCl (Apresoline) 20 mg IVPUSH Q4H PRN PRN Reason: Hypertension Promethazine HCl 12.5 mg/ (Sodium Chloride) 50.5 mls @ 100 mls/hr IV Q6H PRN PRN Reason: Nausea/Vomiting Levothyroxine Sodium (Levothroid) 137 mcg PO ACBREAKFAST [facility] Last Admin: 12/09/16 05:14 Dose: 137 mcg Lidocaine (Lidoderm 5%) 700 mg TOP Q24H [facility] Last Admin: 12/08/16 20:07 Dose: 700 mg Lorazepam (Ativan) 0 mg IVPUSH ASDIRECTED PRN; Protocol PRN Reason: Withdrawal Symptoms Last Admin: 12/04/16 17:22 Dose: 1 mg Magnesium Oxide (Magnesium Oxide) 400 mg PO DAILY [facility] Last Admin: 12/09/16 08:42 Dose: 400 mg Metoprolol Tartrate (Lopressor) 5 mg IVPUSH Q4H PRN PRN Reason: Tachycardia Miscellaneous Information (Remove Patch) 1 ea TRDERM DAILY [facility] Last Admin: 12/09/16 08:47 Dose: 1 ea Miscellaneous Information (Remove Patch) 1 ea TRDERM Q24H [facility] Last Admin: 12/09/16 08:43 Dose: 1 ea Nicotine (Habitrol) 21 mg TRDERM DAILY [facility] Last Admin: 12/09/16 08:40 Dose: 21 mg Ondansetron HCl (Zofran) 4 mg IV Q6H PRN PRN Reason: Nausea/Vomiting Pantoprazole Sodium (Protonix) 40 mg PO BIDAC [facility] Last Admin: 12/09/16 05:14 Dose: 40 mg Polyethylene Glycol (Miralax) 17 gm PO DAILY PRN PRN Reason: Constipation Last Admin: 12/07/16 08:52 Dose: 17 gm Pramipexole Dihydrochloride (Mirapex) 0.125 mg PO BEDTIME [facility] Last Admin: 12/08/16 20:15 Dose: 0.125 mg Quetiapine Fumarate (Seroquel) 50 mg PO BEDTIME [facility] Last Admin: 12/08/16 20:18 Dose: 50 mg Senna/Docusate Sodium (Senna Plus) 1 tab PO BID PRN PRN Reason: Constipation Last Admin: 12/05/16 19:03 Dose: 1 tab Temazepam (Restoril) 30 mg PO BEDTIME PRN PRN Reason: Insomnia Last Admin: 12/08/16 22:01 Dose: 30 mg Thiamine HCl (Vitamin B-1) 100 mg PO DAILY [facility] Last Admin: 12/09/16 08:45 Dose: 100 mg Discontinued Medications Bisacodyl (Dulcolax) 10 mg RECTAL ONETIME ONE Stop: 12/07/16 16:24 Last Admin: 12/07/16 16:41 Dose: 10 mg Bupropion HCl (Wellbutrin Xl) 150 mg PO DAILY [facility] Last Admin: 12/05/16 08:57 Dose: 150 mg Chlordiazepoxide HCl (Librium) 25 mg PO TID [facility] Last Admin: 12/04/16 09:58 Dose: 25 mg Chlordiazepoxide HCl (Librium) 25 mg PO BID [facility] Last Admin: 12/09/16 08:42 Dose: 25 mg Clonidine HCl (Catapres-Tts 3) 0.3 mg TRDERM Q7D ONE Stop: 12/03/16 00:01 Last Admin: 12/03/16 00:04 Dose: 0.3 mg Enoxaparin Sodium (Lovenox) 40 mg SUBCUT DAILY [facility] Hydromorphone HCl (Dilaudid) 0.5 mg IVPUSH ONETIME ONE Stop: 12/02/16 21:08 Last Admin: 12/02/16 21:20 Dose: 0.5 mg Hydromorphone HCl (Dilaudid) 1 mg IVPUSH Q4H PRN PRN Reason: Pain (severe 7-10) Hydromorphone HCl (Dilaudid) 1 mg IVPUSH Q6H PRN PRN Reason: Pain (severe 7-10) Last Admin: 12/04/16 17:21 Dose: 1 mg Dextrose/Sodium Chloride (Dextrose 5%-Normal Saline) 1,000 mls @ 999 mls/hr IV ASDIRECTED [facility] Last Admin: 12/02/16 21:16 Dose: 999 mls/hr Thiamine HCl 100 mg/ Sodium (Chloride) 101 mls @ 200 mls/hr IV ONETIME ONE Stop: 12/02/16 21:43 Last Admin: 12/02/16 21:54 Dose: 200 mls/hr Dextrose/Sodium Chloride (Dextrose 5%-1/2 Ns) 1,000 mls @ 125 mls/hr IV ASDIRECTED [facility] Last Admin: 12/03/16 20:48 Dose: 125 mls/hr Magnesium Sulfate 2 gm/ Premix 50 mls @ 25 mls/hr IV ONETIME ONE Stop: 12/03/16 10:29 Last Admin: 12/03/16 08:41 Dose: 25 mls/hr Iron Sucrose 500 mg/ Sodium (Chloride) 250 mls @ 62.5 mls/hr IV ONETIME ONE Stop: 12/05/16 11:59 Last Admin: 12/05/16 08:55 Dose: 62.5 mls/hr Ketorolac Tromethamine (Toradol) 60 mg IM ONETIME ONE Stop: 12/05/16 15:01 Last Admin: 12/05/16 14:03 Dose: 60 mg Ketorolac Tromethamine (Toradol) 30 mg IVPUSH Q6H [facility] Stop: 12/07/16 15:01 Last Admin: 12/07/16 14:20 Dose: 30 mg Levothyroxine Sodium (Levothyroxine) 112 mcg PO ACBREAKFAST [facility] Last Admin: 12/03/16 05:23 Dose: 112 mcg Lidocaine (Lidoderm 5%) 700 mg TOP Q24H [facility] Last Admin: 12/03/16 00:04 Dose: 700 mg Lorazepam (Ativan) 1 mg IVPUSH ONETIME ONE Stop: 12/02/16 21:08 Last Admin: 12/02/16 21:17 Dose: 1 mg Lorazepam (Ativan) 2 mg IVPUSH Q4H PRN PRN Reason: Seizures Last Admin: 12/03/16 15:05 Dose: 2 mg Lorazepam (Ativan) 1 mg IVPUSH Q4H PRN; Protocol PRN Reason: Withdrawal Symptoms Magnesium Sulfate (Pharmacy To Dose - Magnesium Replacement) 1 dose .XX ASDIRECTED [facility] Miscellaneous Information (Remove Patch) 1 ea TRDERM Q24H [facility] Last Admin: 12/03/16 13:13 Dose: 1 ea Naproxen (Naprosyn) 375 mg PO Q12HR [facility] Last Admin: 12/05/16 08:57 Dose: 375 mg Oxycodone HCl (Oxycontin) 10 mg PO Q12HR [facility] Last Admin: 12/05/16 08:57 Dose: 10 mg Potassium Chloride (Pharmacy To Dose - Potassium Replacement) 1 dose .XX ASDIRECTED [facility] Potassium Chloride (Potassium Chloride) 40 meq PO ONETIME ONE Stop: 12/05/16 18:35 Last Admin: 12/05/16 19:03 Dose: 40 meq Quetiapine Fumarate (Seroquel) 50 mg PO BEDTIME [facility] Trazodone HCl (Trazodone) 150 mg PO BEDTIME [facility] - Exam Quality Assessment: DVT prophylaxis General: alert, oriented, cooperative, no acute distress HEENT: Pupils equal, Pupils reactive, EOMI, Mucous membr. moist/pink Neck: supple Lungs: Clear to auscultation, Normal respiratory effort Cardiovascular: Regular Rate, Regular Rhythm Abdomen: bowel sounds present, soft, no tenderness, no distension (Female) Exam: Deferred Back Exam: normal inspection Extremities: no edema Skin: warm, dry Neurological: no new focal deficit Psy/Mental Status: alert, normal mood - Problem List & Annotations (1) Alcohol dependence with acute alcoholic intoxication SNOMED Code(s): 561204755 Code(s): F10.229 - ALCOHOL DEPENDENCE WITH INTOXICATION, UNSPECIFIED Status : Acute Priority: High Current Visit: Yes Qualifiers: Complication of substance-induced condition: with unspecified complication Qualified Code(s): F10.229 - Alcohol dependence with intoxication, unspecified (2) Compression fracture of first lumbar vertebra SNOMED Code(s): 530970851 Code(s): S32.010A - WEDGE COMPRESSION FRACTURE OF FIRST LUMBAR VERTEBRA, INIT Status: Acute Priority: High Current Visit: Yes Qualifiers: Encounter type: initial encounter Fracture type: closed Qualified Code(s) : S32.010A - Wedge compression fracture of first lumbar vertebra, initial encounter for closed fracture (3) Hypokalemia due to inadequate potassium intake SNOMED Code(s): 46650482 Code(s): E87.6 - HYPOKALEMIA Status: Resolved Priority: High Current Visit: Yes (4) Nicotine dependence SNOMED Code(s): 17273789 Code(s): F17.200 - NICOTINE DEPENDENCE, UNSPECIFIED, UNCOMPLICATED Status: Chronic Priority: High Current Visit: Yes Qualifiers: Nicotine product type: cigarettes Substance use status: uncomplicated Qualified Code(s): F17.210 - Nicotine dependence, cigarettes, uncomplicated (5) Depressive disorder SNOMED Code(s): 87424561 Code(s): F32.9 - MAJOR DEPRESSIVE DISORDER, SINGLE EPISODE, UNSPECIFIED Status: Chronic Priority: High Current Visit: Yes - Problem List Review Problem List Initiated/Reviewed/Updated: Yes - My Orders Last 24 Hours: My Active Orders 12/09/16 08:50 BASIC METABOLIC PANEL,BMP [CHEM] Routine 12/09/16 08:51 CBC W/O DIFF,HEMOGRAM [HEME] Routine - Plan Plan:: Impression: ETOH abuse acute on chronic Detox as inpatient [facility] TBD Substance abuse THC Anxiety/Depression Med rec per psych Hypothyrpid Acute L1 Fx, NONCOMPLIANT with back brace Abnormal Cervical Spine CT Plan: Continue current treatment DVT prophylaxis Fall/SZ precautions [facility] placement, pending DC early next week. LOS>96 hours <Delfina Roldan - Last Filed: 12/09/16 16:31> - Patient Data Vitals - most recent: Last Vital Signs Temp 36.7 C 12/09/16 15:36 Pulse 77 12/09/16 15:36 Resp 20 12/09/16 15:36 BP 117/77 12/09/16 15:36 Pulse Ox 98 12/09/16 15:36 I&O - last 24 hours: Intake & Output 12/09/16 12/09/16 12/09/16 06:59 14:59 22:59 Intake Total 275 290 Balance 275 290 Lab Results last 24 hrs: Laboratory Results - last 24 hr 12/09/16 12/09/16 Range/Units 09:30 09:30 WBC 4.93 (3.98-10.04) K/mm3 RBC 3.66 L (3.98-5.22) M/mm3 Hgb 9.8 L (11.2-15.7) gm/L Hct 32.6 L (34.1-44.9) % MCV 89.1 (79.4-94.8) fl MCH 26.8 (25.6-32.2) pg MCHC 30.1 L (32.2-35.5) g/dl RDW Std Deviation 77.4 H (36.4-46.3) fL Plt Count 283 (182-369) K/mm3 MPV 9.8 (9.4-12.3) fl Sodium 142 (136-145) mEq/L Potassium 4.4 (3.5-5.1) mEq/L Chloride 107 (98-107) mEq/L Carbon Dioxide 27 (21-32) mEq/L Anion Gap 12.4 (5-15) BUN 11 (7-18) mg/dL Creatinine 0.7 (0.55-1.02) mg/dL Est Cr Clr Drug Dosing 70.21 mL/min Estimated GFR (MDRD) > 60 (>60) mL/min BUN/Creatinine Ratio 15.7 (14-18) Glucose 103 (74-106) mg/dL Calcium 8.8 (8.5-10.1) mg/dL Med Orders - Current: Current Medications Acetaminophen (Tylenol) 650 mg PO Q4H PRN PRN Reason: Pain (Mild 1-3)/fever Last Admin: 12/09/16 15:36 Dose: 650 mg Hydrocodone Bitart/Acetaminophen ([place] 325-5 Mg) 1 tab PO Q4H PRN PRN Reason: Pain (moderate 4-6) Last Admin: 12/09/16 13:48 Dose: 1 tab Albuterol/Ipratropium (Duoneb 3.0-0.5 Mg/3 Ml) 3 ml NEB Q4H PRN PRN Reason: Shortness Of Breath/wheezing Bisacodyl (Dulcolax) 5 mg PO DAILY PRN PRN Reason: Constipation Last Admin: 12/06/16 16:06 Dose: 5 mg Docusate Sodium (Colace) 100 mg PO BID [facility] Last Admin: 12/09/16 08:40 Dose: 100 mg Fluoxetine HCl (Prozac) 20 mg PO DAILY [facility] Last Admin: 12/09/16 08:42 Dose: 20 mg Folic Acid (Folic Acid) 1 mg PO BEDTIME [facility] Last Admin: 12/08/16 20:17 Dose: 1 mg Hydralazine HCl (Apresoline) 20 mg IVPUSH Q4H PRN PRN Reason: Hypertension Promethazine HCl 12.5 mg/ (Sodium Chloride) 50.5 mls @ 100 mls/hr IV Q6H PRN PRN Reason: Nausea/Vomiting Levothyroxine Sodium (Levothroid) 137 mcg PO ACBREAKFAST [facility] Last Admin: 12/09/16 05:14 Dose: 137 mcg Lidocaine (Lidoderm 5%) 700 mg TOP Q24H [facility] Last Admin: 12/08/16 20:07 Dose: 700 mg Lorazepam (Ativan) 0 mg IVPUSH ASDIRECTED PRN; Protocol PRN Reason: Withdrawal Symptoms Last Admin: 12/04/16 17:22 Dose: 1 mg Magnesium Oxide (Magnesium Oxide) 400 mg PO DAILY [facility] Last Admin: 12/09/16 08:42 Dose: 400 mg Metoprolol Tartrate (Lopressor) 5 mg IVPUSH Q4H PRN PRN Reason: Tachycardia Miscellaneous Information (Remove Patch) 1 ea TRDERM DAILY [facility] Last Admin: 12/09/16 08:47 Dose: 1 ea Miscellaneous Information (Remove Patch) 1 ea TRDERM Q24H [facility] Last Admin: 12/09/16 08:43 Dose: 1 ea Nicotine (Habitrol) 21 mg TRDERM DAILY [facility] Last Admin: 12/09/16 08:40 Dose: 21 mg Ondansetron HCl (Zofran) 4 mg IV Q6H PRN PRN Reason: Nausea/Vomiting Pantoprazole Sodium (Protonix) 40 mg PO BIDAC [facility] Last Admin: 12/09/16 15:33 Dose: 40 mg Polyethylene Glycol (Miralax) 17 gm PO DAILY PRN PRN Reason: Constipation Last Admin: 12/07/16 08:52 Dose: 17 gm Pramipexole Dihydrochloride (Mirapex) 0.125 mg PO BEDTIME [facility] Last Admin: 12/08/16 20:15 Dose: 0.125 mg Quetiapine Fumarate (Seroquel) 50 mg PO BEDTIME [facility] Last Admin: 12/08/16 20:18 Dose: 50 mg Senna/Docusate Sodium (Senna Plus) 1 tab PO BID PRN PRN Reason: Constipation Last Admin: 12/05/16 19:03 Dose: 1 tab Temazepam (Restoril) 30 mg PO BEDTIME PRN PRN Reason: Insomnia Last Admin: 12/08/16 22:01 Dose: 30 mg Thiamine HCl (Vitamin B-1) 100 mg PO DAILY [facility] Last Admin: 12/09/16 08:45 Dose: 100 mg Discontinued Medications Bisacodyl (Dulcolax) 10 mg RECTAL ONETIME ONE Stop: 12/07/16 16:24 Last Admin: 12/07/16 16:41 Dose: 10 mg Bupropion HCl (Wellbutrin Xl) 150 mg PO DAILY [facility] Last Admin: 12/05/16 08:57 Dose: 150 mg Chlordiazepoxide HCl (Librium) 25 mg PO TID [facility] Last Admin: 12/04/16 09:58 Dose: 25 mg Chlordiazepoxide HCl (Librium) 25 mg PO BID [facility] Last Admin: 12/09/16 08:42 Dose: 25 mg Clonidine HCl (Catapres-Tts 3) 0.3 mg TRDERM Q7D ONE Stop: 12/03/16 00:01 Last Admin: 12/03/16 00:04 Dose: 0.3 mg Enoxaparin Sodium (Lovenox) 40 mg SUBCUT DAILY [facility] Hydromorphone HCl (Dilaudid) 0.5 mg IVPUSH ONETIME ONE Stop: 12/02/16 21:08 Last Admin: 12/02/16 21:20 Dose: 0.5 mg Hydromorphone HCl (Dilaudid) 1 mg IVPUSH Q4H PRN PRN Reason: Pain (severe 7-10) Hydromorphone HCl (Dilaudid) 1 mg IVPUSH Q6H PRN PRN Reason: Pain (severe 7-10) Last Admin: 12/04/16 17:21 Dose: 1 mg Dextrose/Sodium Chloride (Dextrose 5%-Normal Saline) 1,000 mls @ 999 mls/hr IV ASDIRECTED [facility] Last Admin: 12/02/16 21:16 Dose: 999 mls/hr Thiamine HCl 100 mg/ Sodium (Chloride) 101 mls @ 200 mls/hr IV ONETIME ONE Stop: 12/02/16 21:43 Last Admin: 12/02/16 21:54 Dose: 200 mls/hr Dextrose/Sodium Chloride (Dextrose 5%-1/2 Ns) 1,000 mls @ 125 [facility] Admin: 12/03/16 20:48 Dose: 125 mls/hr Magnesium Sulfate 2 gm/ Premix 50 mls @ 25 mls/hr IV ONETIME ONE Stop: 12/03/16 10:29 Last Admin: 12/03/16 08:41 Dose: 25 mls/hr Iron Sucrose 500 mg/ Sodium (Chloride) 250 mls @ 62.5 mls/hr IV ONETIME ONE Stop: 12/05/16 11:59 Last Admin: 12/05/16 08:55 Dose: 62.5 mls/hr Ketorolac Tromethamine (Toradol) 60 mg IM ONETIME ONE Stop: 12/05/16 15:01 Last Admin: 12/05/16 14:03 Dose: 60 mg Ketorolac Tromethamine (Toradol) 30 mg IVPUSH Q6H [facility] Stop: 12/07/16 15:01 Last Admin: 12/07/16 14:20 Dose: 30 mg Levothyroxine Sodium (Levothyroxine) 112 mcg PO ACBREAKFAST [facility] Last Admin: 12/03/16 05:23 Dose: 112 mcg Lidocaine (Lidoderm 5%) 700 mg TOP Q24H [facility] Last Admin: 12/03/16 00:04 Dose: 700 mg Lorazepam (Ativan) 1 mg IVPUSH ONETIME ONE Stop: 12/02/16 21:08 Last Admin: 12/02/16 21:17 Dose: 1 mg Lorazepam (Ativan) 2 mg IVPUSH Q4H PRN PRN Reason: Seizures Last Admin: 12/03/16 15:05 Dose: 2 mg Lorazepam (Ativan) 1 mg IVPUSH Q4H PRN; Protocol PRN Reason: Withdrawal Symptoms Magnesium Sulfate (Pharmacy To Dose - Magnesium Replacement) 1 dose .XX ASDIRECTED [facility] Miscellaneous Information (Remove Patch) 1 ea TRDERM Q24H [facility] Last Admin: 12/03/16 13:13 Dose: 1 ea Naproxen (Naprosyn) 375 mg PO Q12HR [facility] Last Admin: 12/05/16 08:57 Dose: 375 mg Oxycodone HCl (Oxycontin) 10 mg PO Q12HR [facility] Last Admin: 12/05/16 08:57 Dose: 10 mg Potassium Chloride (Pharmacy To Dose - Potassium Replacement) 1 dose .XX ASDIRECTED [facility] Potassium Chloride (Potassium Chloride) 40 meq PO ONETIME ONE Stop: 12/05/16 18:35 Last Admin: 12/05/16 19:03 Dose: 40 meq Quetiapine Fumarate (Seroquel) 50 mg PO BEDTIME [facility] Trazodone HCl (Trazodone) 150 mg PO BEDTIME [facility] - Problem List & Annotations (1) Alcohol dependence with acute alcoholic intoxication SNOMED Code(s): 596505313 Code(s): F10.229 - ALCOHOL DEPENDENCE WITH INTOXICATION, UNSPECIFIED Status : Acute Priority: High Current Visit: Yes Qualifiers: Complication of substance-induced condition: with unspecified complication Qualified Code(s): F10.229 - Alcohol dependence with intoxication, unspecified (2) Compression fracture of first lumbar vertebra SNOMED Code(s): 900507220 Code(s): S32.010A - WEDGE COMPRESSION FRACTURE OF FIRST LUMBAR VERTEBRA, INIT Status: Acute Priority: High Current Visit: Yes Qualifiers: Encounter type: initial encounter Fracture type: closed Qualified Code(s) : S32.010A - Wedge compression fracture of first lumbar vertebra, initial encounter for closed fracture (3) Hypokalemia due to inadequate potassium intake SNOMED Code(s): 87608964 Code(s): E87.6 - HYPOKALEMIA Status: Resolved Priority: High Current Visit: Yes (4) Metabolic acidosis with increased anion gap and accumulation of organic acids SNOMED Code(s): 07695344 Code(s): E87.2 - ACIDOSIS Status: Acute Current Visit: Yes (5) Nicotine dependence SNOMED Code(s): 71462017 Code(s): F17.200 - NICOTINE DEPENDENCE, UNSPECIFIED, UNCOMPLICATED Status: Chronic Priority: High Current Visit: Yes Qualifiers: Nicotine product type: cigarettes Substance use status: uncomplicated Qualified Code(s): F17.210 - Nicotine dependence, cigarettes, uncomplicated (6) Alcohol abuse SNOMED Code(s): 12694009 Code(s): F10.10 - ALCOHOL ABUSE, UNCOMPLICATED Status: Acute Current Visit: No (7) Alcohol intoxication SNOMED Code(s): 80405699 Code(s): F10.129 - ALCOHOL ABUSE WITH INTOXICATION, UNSPECIFIED Status: Acute Current Visit: No - Plan Plan:: DC arrangements are in place, [facility] on 12/10/16.
[2016-12-09] MEDS: Acetaminophen 325 MG Tab PO PRN (15:36)
[2016-12-09] MEDS: QUEtiapine 25 MG Tab PO SCH (22:01)
[2016-12-09] MEDS: Lidocaine 5% 700 MG Patch TOP SCH (22:01)
[2016-12-09] MEDS: Pramipexole 0.25 MG Tab PO SCH (22:02)
[2016-12-09] MEDS: Folic Acid 1 MG Tab PO SCH (22:05)
[2016-12-09] MEDS: Temazepam 30 MG Cap PO PRN (22:08)
[2016-12-10] MEDS: Pantoprazole 40 MG Tab.CR PO SCH (06:47)
--- NOTE | 2016-12-10 07:02 | PCM.DCSUM1 ---
<Nina Rodriguez - Last Filed: 12/10/16 07:01> Discharge Summary - Hospital Course Free Text/Narrative:: This is a 51 yo white female with past medical hx/o impaired Vision, Chronic Low BP, Hx/o Gastric Ulcer, RA, Hx/o TBI, Substance Abuse, Depression, Hypothyroidism and Vitamin B 12 Deficiency who comes in with complaints of LBP associated with Neck Pain and a VAZQUEZ, was found to be intoxicated with a YOHAN level of 0.29. Patient reports that she fell last evening landing hard on her back and with her head hitting the ground. It is unclear whether she was out or not. Additionally she tells me, she was kicked out of her home she shares with her significant other and was dropped off to [address] as part of a restraining order against her filed by her boy friend. Patient carries a long standing hx/o Chronic Alcoholism. She drinks 1 gallon of vodka a day for over 6 years now. She attended chemical rehab in the past (a few months) but went back straight to drinking. Currently, she is not having any hallucinations or seizures. Her initial work up in ED shows a CBC remarkable for Hgb of 10.8 and Platelet of 128. Her chemistry is significant for AG of 19.5, Ca+ of 8.4, AST of 71, Alk Phos of 123 and TSH of 112.651. UA is not suggestive of UTI. UDS is pos for THC. Her Cervical spine CT scan shows lucent lesion within the dens: focal osteopenia vs osteolytic lesion, Head CT scan shows no acute abnormal findings, and Lumbar Spine CT scan shows superior endplate concavity of L1 whish appears to be acute. Patient received initial treatment in ED before she was sent to the unit for further treatment. She being admitted for Alcohol Intoxication and Lumbar Compression Fracture. She is full code. Patient was treated with librium, ativan, seroquel, CIWA protocol. Withdrawl was with CIWA's up to 14-16, librium was decreased and discontinued when appropriate. She had consult with Riky TREJO and with Psychiatry, Dr Culp who made medication changes, dc'd wellbutrin, started prozac. She has liable moods and is at times irrational and manipulative to staff. She worked with PT for L1 compression fracture, applying Mosley brace and wearing it appropriately. She is now compliant with wearing brace and with restrictions. She should have Orthopedic follow up in [address] Sagastume's recommendation, either in [place] or back in [place] with Dr. Sagastume. She should also have follow up with PCP, Dr. Mirian Francis when she is discharged from [facility] and returns to [place]. She is discharged to [facility] with agronomy professor's office to transport. - Discharge Data Discharge Date: 12/10/16 (admit date 12/02/16) Discharge Disposition: DC/Tfer to Psych Hosp/Unit [facility] Condition: Good - Discharge Diagnosis/Problem(s) (1) Alcohol dependence with acute alcoholic intoxication SNOMED Code(s): 845501721 ICD Code: F10.229 - ALCOHOL DEPENDENCE WITH INTOXICATION, UNSPECIFIED Status: Acute Priority: High Qualifiers: Complication of substance-induced condition: with unspecified complication Qualified Code(s): F10.229 - Alcohol dependence with intoxication, unspecified (2) Compression fracture of first lumbar vertebra SNOMED Code(s): 416397179 ICD Code: S32.010A - WEDGE COMPRESSION FRACTURE OF FIRST LUMBAR VERTEBRA, INIT Status: Acute Priority: High Qualifiers: Encounter type: initial encounter Fracture type: closed Qualified Code(s) : S32.010A - Wedge compression fracture of first lumbar vertebra, initial encounter for closed fracture (3) Hypokalemia due to inadequate potassium intake SNOMED Code(s): 43323032 ICD Code: E87.6 - HYPOKALEMIA Status: Resolved Priority: High (4) Nicotine dependence SNOMED Code(s): 49630905 ICD Code: F17.200 - NICOTINE DEPENDENCE, UNSPECIFIED, UNCOMPLICATED Status : Chronic Priority: High Qualifiers: Nicotine product type: cigarettes Substance use status: uncomplicated Qualified Code(s): F17.210 - Nicotine dependence, cigarettes, uncomplicated (5) Depressive disorder SNOMED Code(s): 69014443 ICD Code: F32.9 - MAJOR DEPRESSIVE DISORDER, SINGLE EPISODE, UNSPECIFIED Status: Chronic Priority: High - Patient Summary/Data Operative Procedure(s) Performed: None Complications: None Consults: Consultations 12/02/16 23:26 Consult to Case Management [CONS] Routine Consult to Physician [CONS] Routine Consult to Radiotelegraph Operator [CONS] Routine OT Evaluation and Treatment [CONS] Routine PT Evaluation and Treatment [CONS] Routine 12/02/16 23:44 Consult for Substance Abuse [CONS] Routine 12/03/16 07:53 Consult to Physical Therapy [PT Evaluation and Treatment] [CONS] Routine 12/03/16 13:42 Consult to Spiritual Care [CONS] Routine 12/05/16 13:27 Consult to Physician [CONS] Routine 12/06/16 07:31 Consult to Spiritual Care [CONS] Routine Labs Pending at D/C: None Recommended Follow-up Testing/Procedures: Follow up with Orthopedics in 10 days with repeat lumbar spine xray- f/up on L1 compression fx. Either with Orthopedics in [place] or with Dr. Sagastume back in [place]. Follow up with PCP, Dr. Francis when discharged from [facility] and arrives back in [place]. Planned Operative Procedure(s) after DC: None Hospital Course: As above - Patient Instructions Diet: Usual Diet as Tolerated, Drink 8-10+ Glasses/Day Activity: As Tolerated (wearing Mosley back brace at all times when up and around) , No Lifting Over 20 Pounds Driving: Do Not Drive Showering/Bathing: May Shower Notify Provider of: Fever, Increased Pain, Nausea and/or Vomiting - Discharge Plan Prescriptions/Med Rec: Acetaminophen/HYDROcodone [[place] 325-5 MG] 1 tab PO Q4H PRN #30 tablet PRN Reason: back pain FLUoxetine [PROzac] 20 mg PO DAILY #30 cap Folic Acid 1 mg PO BEDTIME #30 tablet Lidocaine 5% [Lidoderm 5%] 700 mg TOP Q24H #1 box Magnesium Oxide 400 mg PO DAILY #30 tablet Nicotine [Habitrol] 21 mg TRDERM DAILY #30 patch Home Medications: Home Meds Pramipexole [Mirapex] 0.125 mg PO BEDTIME 08/30/15 [History] QUEtiapine [SEROquel] 50 mg PO BEDTIME 08/30/15 [History] Docusate Sodium [Colace] 100 mg PO BID 06/05/16 [History] Pantoprazole [ProTONIX] 40 mg PO BID 06/05/16 [History] Thiamine [Vitamin B-1] 100 mg PO DAILY 06/05/16 [History] Levothyroxine 112 mcg PO ACBREAKFAST 12/02/16 [History] Acetaminophen/HYDROcodone [[place] 325-5 MG] 1 tab PO Q4H PRN #30 tablet 12/10/16 [Rx] FLUoxetine [PROzac] 20 mg PO DAILY #30 cap 12/10/16 [Rx] Folic Acid 1 mg PO BEDTIME #30 tablet 12/10/16 [Rx] Lidocaine 5% [Lidoderm 5%] 700 mg TOP Q24H #1 box 12/10/16 [Rx] Magnesium Oxide 400 mg PO DAILY #30 tablet 12/10/16 [Rx] Nicotine [Habitrol] 21 mg TRDERM DAILY #30 patch 12/10/16 [Rx] Patient Handouts: Smoking Cessation, Tips for Success, [id number], Alcoholic Liver Disease, [id number], Alcohol Intoxication, [id number], Spinal Compression Fracture, Alcohol Withdrawal, [id number] Forms: ED Department Discharge Referrals: Mirian Francis MD [Primary Care Provider] - - Discharge Summary/Plan Comment DC Time >30 min.: Yes (40 min) - General Info Date of Service: 12/10/16 Admission Dx/Problem (Free Text: Admission Diagnosis/Problem Admission Diagnosis/Problem Compression fracture of lumbar spine, alcohol withdrawl and abuse Functional Status: Reports: pain controlled, tolerating diet, ambulating, urinating. Denies: new symptoms - Review of Systems General: Reports: No Symptoms HEENT: Reports: no symptoms Pulmonary: Reports: no symptoms Cardiovascular: Reports: No Symptoms Gastrointestinal: Reports: No symptoms. Denies: Constipation, Diarrhea Genitourinary: Reports: no symptoms. Denies: urgency, retention Musculoskeletal: Reports: back pain (wearing brace appropriately) Skin: Reports: no symptoms Neurological: Reports: No Symptoms Psychiatric: Reports: no symptoms - Patient Data Vitals - Most Recent: Last Vital Signs Temp 98.1 F 12/10/16 03:31 Pulse 80 12/10/16 03:31 Resp 12 12/10/16 03:31 BP 90/54 L 12/10/16 03:31 Pulse Ox 98 12/10/16 03:31 Weight - Most Recent: 65.317 kg I&O - Last 24 hours: Intake & Output 12/09/16 12/09/16 12/10/16 14:59 22:59 06:59 Intake Total 290 800 500 Output Total 500 Balance 290 300 500 Lab Results - Last 24 hrs: Laboratory Results - last 24 hr 12/09/16 12/09/16 Range/Units 09:30 09:30 WBC 4.93 (3.98-10.04) K/mm3 RBC 3.66 L (3.98-5.22) M/mm3 Hgb 9.8 L (11.2-15.7) gm/L Hct 32.6 L (34.1-44.9) % MCV 89.1 (79.4-94.8) fl MCH 26.8 (25.6-32.2) pg MCHC 30.1 L (32.2-35.5) g/dl RDW Std Deviation 77.4 H (36.4-46.3) fL Plt Count 283 (182-369) K/mm3 MPV 9.8 (9.4-12.3) fl Sodium 142 (136-145) mEq/L Potassium 4.4 (3.5-5.1) mEq/L Chloride 107 (98-107) mEq/L Carbon Dioxide 27 (21-32) mEq/L Anion Gap 12.4 (5-15) BUN 11 (7-18) mg/dL Creatinine 0.7 (0.55-1.02) mg/dL Est Cr Clr Drug Dosing 70.21 mL/min Estimated GFR (MDRD) > 60 (>60) mL/min BUN/Creatinine Ratio 15.7 (14-18) Glucose 103 (74-106) mg/dL Calcium 8.8 (8.5-10.1) mg/dL Med Orders - Current: Current Medications Acetaminophen (Tylenol) 650 mg PO Q4H PRN PRN Reason: Pain (Mild 1-3)/fever Last Admin: 12/09/16 15:36 Dose: 650 mg Hydrocodone Bitart/Acetaminophen ([place] 325-5 Mg) 1 tab PO Q4H PRN PRN Reason: Pain (moderate 4-6) Last Admin: 12/09/16 22:08 Dose: 1 tab Albuterol/Ipratropium (Duoneb 3.0-0.5 Mg/3 Ml) 3 ml NEB Q4H PRN PRN Reason: Shortness Of Breath/wheezing Bisacodyl (Dulcolax) 5 mg PO DAILY PRN PRN Reason: Constipation Last Admin: 12/06/16 16:06 Dose: 5 mg Docusate Sodium (Colace) 100 mg PO BID [facility] Last Admin: 12/09/16 22:01 Dose: 100 mg Fluoxetine HCl (Prozac) 20 mg PO DAILY [facility] Last Admin: 12/09/16 08:42 Dose: 20 mg Folic Acid (Folic Acid) 1 mg PO BEDTIME [facility] Last Admin: 12/09/16 22:05 Dose: 1 mg Hydralazine HCl (Apresoline) 20 mg IVPUSH Q4H PRN PRN Reason: Hypertension Promethazine HCl 12.5 mg/ (Sodium Chloride) 50.5 mls @ 100 mls/hr IV Q6H PRN PRN Reason: Nausea/Vomiting Levothyroxine Sodium (Levothroid) 137 mcg PO ACBREAKFAST [facility] Last Admin: 12/10/16 06:47 Dose: 137 mcg Lidocaine (Lidoderm 5%) 700 mg TOP Q24H [facility] Last Admin: 12/09/16 22:01 Dose: 700 mg Lorazepam (Ativan) 0 mg IVPUSH ASDIRECTED PRN; Protocol PRN Reason: Withdrawal Symptoms Last Admin: 12/04/16 17:22 Dose: 1 mg Magnesium Oxide (Magnesium Oxide) 400 mg PO DAILY [facility] Last Admin: 12/09/16 08:42 Dose: 400 mg Metoprolol Tartrate (Lopressor) 5 mg IVPUSH Q4H PRN PRN Reason: Tachycardia Miscellaneous Information (Remove Patch) 1 ea TRDERM DAILY [facility] Last Admin: 12/09/16 08:47 Dose: 1 ea Miscellaneous Information (Remove Patch) 1 ea TRDERM Q24H [facility] Last Admin: 12/09/16 08:43 Dose: 1 ea Nicotine (Habitrol) 21 mg TRDERM DAILY [facility] Last Admin: 12/09/16 08:40 Dose: 21 mg Ondansetron HCl (Zofran) 4 mg IV Q6H PRN PRN Reason: Nausea/Vomiting [facility] Last Admin: 12/10/16 06:47 Dose: 40 mg Polyethylene Glycol (Miralax) 17 gm PO DAILY PRN PRN Reason: Constipation Last Admin: 12/07/16 08:52 Dose: 17 gm Pramipexole Dihydrochloride (Mirapex) 0.125 mg PO BEDTIME [facility] Last Admin: 12/09/16 22:02 Dose: 0.125 mg Quetiapine Fumarate (Seroquel) 50 mg PO BEDTIME [facility] Last Admin: 12/09/16 22:01 Dose: 50 mg Senna/Docusate Sodium (Senna Plus) 1 tab PO BID PRN PRN Reason: Constipation Last Admin: 12/05/16 19:03 Dose: 1 tab Temazepam (Restoril) 30 mg PO BEDTIME PRN PRN Reason: Insomnia Last Admin: 12/09/16 22:08 Dose: 30 mg Thiamine HCl (Vitamin B-1) 100 mg PO DAILY [facility] Last Admin: 12/09/16 08:45 Dose: 100 mg Discontinued Medications Bisacodyl (Dulcolax) 10 mg RECTAL ONETIME ONE Stop: 12/07/16 16:24 Last Admin: 12/07/16 16:41 Dose: 10 mg Bupropion HCl (Wellbutrin Xl) 150 mg PO DAILY [facility] Last Admin: 12/05/16 08:57 Dose: 150 mg Chlordiazepoxide HCl (Librium) 25 mg PO TID [facility] Last Admin: 12/04/16 09:58 Dose: 25 mg Chlordiazepoxide HCl (Librium) 25 mg PO BID [facility] Last Admin: 12/09/16 08:42 Dose: 25 mg Clonidine HCl (Catapres-Tts 3) 0.3 mg TRDERM Q7D ONE Stop: 12/03/16 00:01 Last Admin: 12/03/16 00:04 Dose: 0.3 mg Enoxaparin Sodium (Lovenox) 40 mg SUBCUT DAILY [facility] Hydromorphone HCl (Dilaudid) 0.5 mg IVPUSH ONETIME ONE Stop: 12/02/16 21:08 Last Admin: 12/02/16 21:20 Dose: 0.5 mg Hydromorphone HCl (Dilaudid) 1 mg IVPUSH Q4H PRN PRN Reason: Pain (severe 7-10) Hydromorphone HCl (Dilaudid) 1 mg IVPUSH Q6H PRN PRN Reason: Pain (severe 7-10) Last Admin: 12/04/16 17:21 Dose: 1 mg Dextrose/Sodium Chloride (Dextrose 5%-Normal Saline) 1,000 mls @ 999 mls/hr IV ASDIRECTED [facility] Last Admin: 12/02/16 21:16 Dose: 999 mls/hr Thiamine HCl 100 mg/ Sodium (Chloride) 101 mls @ 200 mls/hr IV ONETIME ONE Stop: 12/02/16 21:43 Last Admin: 12/02/16 21:54 Dose: 200 mls/hr Dextrose/Sodium Chloride (Dextrose 5%-1/2 Ns) 1,000 mls @ 125 mls/hr IV ASDIRECTED [facility] Last Admin: 12/03/16 20:48 Dose: 125 mls/hr Magnesium Sulfate 2 gm/ Premix 50 mls @ 25 mls/hr IV ONETIME ONE Stop: 12/03/16 10:29 Last Admin: 12/03/16 08:41 Dose: 25 mls/hr Iron Sucrose 500 mg/ Sodium (Chloride) 250 mls @ 62.5 mls/hr IV ONETIME ONE Stop: 12/05/16 11:59 Last Admin: 12/05/16 08:55 Dose: 62.5 mls/hr Ketorolac Tromethamine (Toradol) 60 mg IM ONETIME ONE Stop: 12/05/16 15:01 Last Admin: 12/05/16 14:03 Dose: 60 mg Ketorolac Tromethamine (Toradol) 30 mg IVPUSH Q6H [facility] Stop: 12/07/16 15:01 Last Admin: 12/07/16 14:20 Dose: 30 mg Levothyroxine Sodium (Levothyroxine) 112 mcg PO ACBREAKFAST [facility] Last Admin: 12/03/16 05:23 Dose: 112 mcg Lidocaine (Lidoderm 5%) 700 mg TOP Q24H [facility] Last Admin: 12/03/16 00:04 Dose: 700 mg Lorazepam (Ativan) 1 mg IVPUSH ONETIME ONE Stop: 12/02/16 21:08 Last Admin: 12/02/16 21:17 Dose: 1 mg Lorazepam (Ativan) 2 mg IVPUSH Q4H PRN PRN Reason: Seizures Last Admin: 12/03/16 15:05 Dose: 2 mg Lorazepam (Ativan) 1 mg IVPUSH Q4H PRN; Protocol PRN Reason: Withdrawal Symptoms Magnesium Sulfate (Pharmacy To Dose - Magnesium Replacement) 1 dose .XX ASDIRECTED [facility] Miscellaneous Information (Remove Patch) 1 ea TRDERM Q24H [facility] Last Admin: 12/03/16 13:13 Dose: 1 ea Naproxen (Naprosyn) 375 mg PO Q12HR [facility] Last Admin: 12/05/16 08:57 Dose: 375 mg Oxycodone HCl (Oxycontin) 10 mg PO Q12HR [facility] Last Admin: 12/05/16 08:57 Dose: 10 mg Potassium Chloride (Pharmacy To Dose - Potassium Replacement) 1 dose .XX ASDIRECTED [facility] Potassium Chloride (Potassium Chloride) 40 meq PO ONETIME ONE Stop: 12/05/16 18:35 Last Admin: 12/05/16 19:03 Dose: 40 meq Quetiapine Fumarate (Seroquel) 50 mg PO BEDTIME [facility] Trazodone HCl (Trazodone) 150 mg PO BEDTIME [facility] - Exam Quality Assessment: Reports: DVT prophylaxis General: Reports: alert, oriented, cooperative, no acute distress HEENT: Reports: Pupils equal, Pupils reactive, EOMI, Mucous membr. moist/pink Neck: Reports: supple Lungs: Reports: Clear to auscultation, Normal respiratory effort Cardiovascular: Reports: Regular Rate, Regular Rhythm Abdomen: Reports: bowel sounds present, soft, no tenderness, no distension (Female) Exam: Deferred Rectal (Female) Exam: Deferred Back Exam: Reports: normal inspection, other (Mosley brace in place) Extremities: Reports: no edema, no calf tenderness Skin: Reports: warm, dry, intact Neurological: Reports: no new focal deficit Psy/Mental Status: Reports: alert, normal affect, normal mood, labile mood *Q Meaningful Use (DIS) - VTE *Q VTE Criteria *Q: - Stroke *Q Stroke Criteria *Q: - AMI *Q AMI Criteria *Q: <Delfina Roldan - Last Filed: 12/10/16 17:57> Discharge Summary - Hospital Course Free Text/Narrative:: DC to [place], agree with summary of care. - Discharge Diagnosis/Problem(s) (1) Alcohol dependence with acute alcoholic intoxication SNOMED Code(s): 308681433 ICD Code: F10.229 - ALCOHOL DEPENDENCE WITH INTOXICATION, UNSPECIFIED Status: Acute Priority: High Qualifiers: Complication of substance-induced condition: with unspecified complication Qualified Code(s): F10.229 - Alcohol dependence with intoxication, unspecified (2) Compression fracture of first lumbar vertebra SNOMED Code(s): 594874263 ICD Code: S32.010A - WEDGE COMPRESSION FRACTURE OF FIRST LUMBAR VERTEBRA, INIT Status: Acute Priority: High Qualifiers: Encounter type: initial encounter Fracture type: closed Qualified Code(s) : S32.010A - Wedge compression fracture of first lumbar vertebra, initial encounter for closed fracture (3) Hypokalemia due to inadequate potassium intake SNOMED Code(s): 78035961 ICD Code: E87.6 - HYPOKALEMIA Status: Resolved Priority: High (4) Metabolic acidosis with increased anion gap and accumulation of organic acids SNOMED Code(s): 15530582 ICD Code: E87.2 - ACIDOSIS Status: Acute (5) Nicotine dependence SNOMED Code(s): 38370948 ICD Code: F17.200 - NICOTINE DEPENDENCE, UNSPECIFIED, UNCOMPLICATED Status : Chronic Priority: High Qualifiers: Nicotine product type: cigarettes Substance use status: uncomplicated Qualified Code(s): F17.210 - Nicotine dependence, cigarettes, uncomplicated (6) Alcohol abuse SNOMED Code(s): 56692608 ICD Code: F10.10 - ALCOHOL ABUSE, UNCOMPLICATED Status: Acute (7) Alcohol intoxication SNOMED Code(s): 57896883 ICD Code: F10.129 - ALCOHOL ABUSE WITH INTOXICATION, UNSPECIFIED Status: Acute - Patient Summary/Data Consults: Consultations 12/02/16 23:26 Consult to Case Management [CONS] Routine Consult to Physician [CONS] Routine Consult to Radiotelegraph Operator [CONS] Routine OT Evaluation and Treatment [CONS] Routine PT Evaluation and Treatment [CONS] Routine 12/02/16 23:44 Consult for Substance Abuse [CONS] Routine 12/03/16 07:53 Consult to Physical Therapy [PT Evaluation and Treatment] [CONS] Routine 12/03/16 13:42 Consult to Spiritual Care [CONS] Routine 12/05/16 13:27 Consult to Physician [CONS] Routine 12/06/16 07:31 Consult to Spiritual Care [CONS] Routine - Patient Data Vitals - Most Recent: Last Vital Signs Temp 36.4 C 12/10/16 07:59 Pulse 79 12/10/16 07:59 Resp 18 12/10/16 07:59 BP 114/81 12/10/16 07:59 Pulse Ox 100 12/10/16 07:59 I&O - Last 24 hours: Intake & Output 12/10/16 12/10/16 12/10/16 06:59 14:59 22:59 Intake Total 500 0 Balance 500 0 Med Orders - Current: Current Medications Discontinued Medications Acetaminophen (Tylenol) 650 mg PO Q4H PRN PRN Reason: Pain (Mild 1-3)/fever Last Admin: 12/09/16 15:36 Dose: 650 mg Hydrocodone Bitart/Acetaminophen ([place] 325-5 Mg) 1 tab PO Q4H PRN PRN Reason: Pain (moderate 4-6) Last Admin: 12/09/16 22:08 Dose: 1 tab Albuterol/Ipratropium (Duoneb 3.0-0.5 Mg/3 Ml) 3 ml NEB Q4H PRN PRN Reason: Shortness Of Breath/wheezing Bisacodyl (Dulcolax) 5 mg PO DAILY PRN PRN Reason: Constipation Last Admin: 12/06/16 16:06 Dose: 5 mg Bisacodyl (Dulcolax) 10 mg RECTAL ONETIME ONE Stop: 12/07/16 16:24 Last Admin: 12/07/16 16:41 Dose: 10 mg Bupropion HCl (Wellbutrin Xl) 150 mg PO DAILY [facility] Last Admin: 12/05/16 08:57 Dose: 150 mg Chlordiazepoxide HCl (Librium) 25 mg PO TID [facility] Last Admin: 12/04/16 09:58 Dose: 25 mg Chlordiazepoxide HCl (Librium) 25 mg PO BID [facility] Last Admin: 12/09/16 08:42 Dose: 25 mg Clonidine HCl (Catapres-Tts 3) 0.3 mg TRDERM Q7D ONE Stop: 12/03/16 00:01 Last Admin: 12/03/16 00:04 Dose: 0.3 mg Docusate Sodium (Colace) 100 mg PO BID [facility] Last Admin: 12/10/16 08:25 Dose: 100 mg Enoxaparin Sodium (Lovenox) 40 mg SUBCUT DAILY [facility] Fluoxetine HCl (Prozac) 20 mg PO DAILY [facility] Last Admin: 12/10/16 08:25 Dose: 20 mg Folic Acid (Folic Acid) 1 mg PO BEDTIME [facility] Last Admin: 12/09/16 22:05 Dose: 1 mg Hydralazine HCl (Apresoline) 20 mg IVPUSH Q4H PRN PRN Reason: Hypertension Hydromorphone HCl (Dilaudid) 0.5 mg IVPUSH ONETIME ONE Stop: 12/02/16 21:08 Last Admin: 12/02/16 21:20 Dose: 0.5 mg Hydromorphone HCl (Dilaudid) 1 mg IVPUSH Q4H PRN PRN Reason: Pain (severe 7-10) Hydromorphone HCl (Dilaudid) 1 mg IVPUSH Q6H PRN PRN Reason: Pain (severe 7-10) Last Admin: 12/04/16 17:21 Dose: 1 mg Dextrose/Sodium Chloride (Dextrose 5%-Normal Saline) 1,000 mls @ 999 mls/hr IV ASDIRECTED [facility] Last Admin: 12/02/16 21:16 Dose: 999 mls/hr Thiamine HCl 100 mg/ Sodium (Chloride) 101 mls @ 200 mls/hr IV ONETIME ONE Stop: 12/02/16 21:43 Last Admin: 12/02/16 21:54 Dose: 200 mls/hr Dextrose/Sodium Chloride (Dextrose 5%-1/2 Ns) 1,000 mls @ 125 [facility] Last Admin: 12/03/16 20:48 Dose: 125 mls/hr Promethazine HCl 12.5 mg/ (Sodium Chloride) 50.5 mls @ 100 mls/hr IV Q6H PRN PRN Reason: Nausea/Vomiting Magnesium Sulfate 2 gm/ Premix 50 mls @ 25 mls/hr IV ONETIME ONE Stop: 12/03/16 10:29 Last Admin: 12/03/16 08:41 Dose: 25 mls/hr Iron Sucrose 500 mg/ Sodium (Chloride) 250 mls @ 62.5 mls/hr IV ONETIME ONE Stop: 12/05/16 11:59 Last Admin: 12/05/16 08:55 Dose: 62.5 mls/hr Ketorolac Tromethamine (Toradol) 60 mg IM ONETIME ONE Stop: 12/05/16 15:01 Last Admin: 12/05/16 14:03 Dose: 60 mg Ketorolac Tromethamine (Toradol) 30 mg IVPUSH Q6H [facility] Stop: 12/07/16 15:01 Last Admin: 12/07/16 14:20 Dose: 30 mg Levothyroxine Sodium (Levothyroxine) 112 mcg PO ACBREAKFAST [facility] Last Admin: 12/03/16 05:23 Dose: 112 mcg Levothyroxine Sodium (Levothroid) 137 mcg PO ACBREAKFAST [facility] Last Admin: 12/10/16 06:47 Dose: 137 mcg Lidocaine (Lidoderm 5%) 700 mg TOP Q24H [facility] Last Admin: 12/03/16 00:04 Dose: 700 mg Lidocaine (Lidoderm 5%) 700 mg TOP Q24H [facility] Last Admin: 12/09/16 22:01 Dose: 700 mg Lorazepam (Ativan) 1 mg IVPUSH ONETIME ONE Stop: 12/02/16 21:08 Last Admin: 12/02/16 21:17 Dose: 1 mg Lorazepam (Ativan) 2 mg IVPUSH Q4H PRN PRN Reason: Seizures Last Admin: 12/03/16 15:05 Dose: 2 mg Lorazepam (Ativan) 1 mg IVPUSH Q4H PRN; Protocol PRN Reason: Withdrawal Symptoms Lorazepam (Ativan) 0 mg IVPUSH ASDIRECTED PRN; Protocol PRN Reason: Withdrawal Symptoms Last Admin: 12/04/16 17:22 Dose: 1 mg Magnesium Oxide (Magnesium Oxide) 400 mg PO DAILY [facility] Last Admin: 12/10/16 08:25 Dose: 400 mg Magnesium Sulfate (Pharmacy To Dose - Magnesium Replacement) 1 dose .XX ASDIRECTED [facility] Metoprolol Tartrate (Lopressor) 5 mg IVPUSH Q4H PRN PRN Reason: Tachycardia Miscellaneous Information (Remove Patch) 1 ea TRDERM Q24H [facility] Last Admin: 12/03/16 13:13 Dose: 1 ea Miscellaneous Information (Remove Patch) 1 ea TRDERM DAILY [facility] Last Admin: 12/10/16 08:26 Dose: 1 ea Miscellaneous Information (Remove Patch) 1 ea TRDERM Q24H [facility] Last Admin: 12/10/16 08:26 Dose: 1 ea Naproxen (Naprosyn) 375 mg PO Q12HR [facility] Last Admin: 12/05/16 08:57 Dose: 375 mg Nicotine (Habitrol) 21 mg TRDERM DAILY [facility] Last Admin: 12/10/16 08:25 Dose: 21 mg Ondansetron HCl (Zofran) 4 mg IV Q6H PRN PRN Reason: Nausea/Vomiting Oxycodone HCl (Oxycontin) 10 mg PO Q12HR [facility] Last Admin: 12/05/16 08:57 Dose: 10 mg Oxycodone/Acetaminophen (Percocet 325-5 Mg) 1 tab PO ONETIME ONE Stop: 12/10/16 07:23 Last Admin: 12/10/16 08:25 Dose: 1 tab Pantoprazole Sodium (Protonix) 40 mg PO BIDAC [facility] Last Admin: 12/10/16 06:47 Dose: 40 mg Pneumococcal Polyvalent Vaccine (Pneumovax 23) 0.5 ml IM .ONCE ONE Stop: 12/10/16 08:34 Last Admin: 12/10/16 08:46 Dose: 0.5 ml Polyethylene Glycol (Miralax) 17 gm PO DAILY PRN PRN Reason: Constipation Last Admin: 12/07/16 08:52 Dose: 17 gm Potassium Chloride (Pharmacy To Dose - Potassium Replacement) 1 dose .XX ASDIRECTED [facility] Potassium Chloride (Potassium Chloride) 40 meq PO ONETIME ONE Stop: 12/05/16 18:35 Last Admin: 12/05/16 19:03 Dose: 40 meq Pramipexole Dihydrochloride (Mirapex) 0.125 mg PO BEDTIME [facility] Last Admin: 12/09/16 22:02 Dose: 0.125 mg Quetiapine Fumarate (Seroquel) 50 mg PO BEDTIME [facility] Quetiapine Fumarate (Seroquel) 50 mg PO BEDTIME [facility] Last Admin: 12/09/16 22:01 Dose: 50 mg Senna/Docusate Sodium (Senna Plus) 1 tab PO BID PRN PRN Reason: Constipation Last Admin: 12/05/16 19:03 Dose: 1 tab Temazepam (Restoril) 30 mg PO BEDTIME PRN PRN Reason: Insomnia Last Admin: 12/09/16 22:08 Dose: 30 mg Thiamine HCl (Vitamin B-1) 100 mg PO DAILY [facility] Last Admin: 12/10/16 08:25 Dose: 100 mg Trazodone HCl (Trazodone) 150 mg PO BEDTIME [facility] *Q Meaningful Use (DIS) - VTE *Q VTE Criteria *Q: - Stroke *Q Stroke Criteria *Q: - AMI *Q AMI Criteria *Q:
[2016-12-10] MEDS ORDERED: Acetaminophen/oxyCODONE 325-5 MG Tab PO ONE (07:22)
[2016-12-10 08:13] VITALS: BP 114/81
[2016-12-10] MEDS: FLUoxetine 20 MG Cap PO SCH (08:25)
[2016-12-10] MEDS: Nicotine 21 MG/24 Hr Patch TRDERM SCH (08:25)
[2016-12-10] MEDS: Magnesium Oxide 400 MG Tab PO SCH (08:25)
[2016-12-10] MEDS: Docusate Sodium 100 MG Cap PO SCH (08:25)
[2016-12-10] MEDS: Thiamine 100 MG Tab PO SCH (08:25)
[2016-12-10] MEDS: NICOTINE - Remove Patch TRDERM SCH (08:26)
[2016-12-10] MEDS ORDERED: Pneumococcal Polyvalent-23 Vaccine 0.5 ML SDV IM ONE (08:33)
--- NOTE | 2016-12-11 13:50 | CONS ---
CONSULTING PHYSICIAN: Riky Esparza LAC DATE OF CONSULTATION: 12/10/2016 TIME: 10:20 a.m. Received a call from Noemy Echavarria on 12/06/2016 requesting a petition for involuntary commitment be drawn up for the patient to be transported to [facility]. A petition for involuntary commitment was executed on 12/09/2016 and KIMMY Dorsey will provide coordination for continuing safe discharge planning. MMODAL /[id number]
== END 2016-12-10 09:05 | DRG 897 ==
LOC: JD.ED 20:39 → JD.ICU 22:51 → JD.MS 12-04 09:00 → JD.ICU 12-04 09:58
PROVIDERS: ADMIT Internal Medicine; ATTEND Internal Medicine
DX: F10.229 Alcohol dependence with intoxication, unspecified (principal); E87.2 Acidosis; S32.010A Wedge compression fracture of first lumbar vertebra, initial encounter for closed fracture; F10.239 Alcohol dependence with withdrawal, unspecified; Y90.1 Blood alcohol level of 20-39 mg/100 ml; Z59.0 Homelessness; F17.210 Nicotine dependence, cigarettes, uncomplicated; F12.10 Cannabis abuse, uncomplicated; D69.6 Thrombocytopenia, unspecified; F12.90 Cannabis use, unspecified, uncomplicated; E03.9 Hypothyroidism, unspecified; W19.XXXA Unspecified fall, initial encounter; G89.29 Other chronic pain; M54.5 Low back pain; M06.9 Rheumatoid arthritis, unspecified; S30.1XXA Contusion of abdominal wall, initial encounter; F32.9 Major depressive disorder, single episode, unspecified; F41.9 Anxiety disorder, unspecified; D50.9 Iron deficiency anemia, unspecified; E87.6 Hypokalemia; Z91.19 Patient's noncompliance with other medical treatment and regimen; E53.8 Deficiency of other specified B group vitamins; Z79.899 Other long term (current) drug therapy; Z91.030 Bee allergy status; Z91.038 Other insect allergy status; Z88.0 Allergy status to penicillin; Z88.8 Allergy status to other drugs, medicaments and biological substances; Z91.09 Other allergy status, other than to drugs and biological substances; R94.8 Abnormal results of function studies of other organs and systems; Z23 Encounter for immunization
CPT/HCPCS: 36415; 70450; 72125; 72131; 80053; 80306; 81001; 82009; 83735; 84443; 85025; 85610; 85730; 93005; 96361; 96365; 96375; 99285; G0480; J1170; J2060; J3411; J7030; J7042; P9612; 72100; 72100-26; 80048; 82272; 82728; 83540; 84466; 85014; 85018; 85027; 90732; 97116-GP; 97162-GP; 97166-GO; 97530-GO; 97530-GP; 97535-GO; A9270-GY; G0009; J1756; J1885; J3475; J7050

== ENCOUNTER 2017-03-09 13:42 | Inpatient (IN) | payer MEDICARE, MEDICAID ==
[2017-03-09] MEDS ORDERED: Sodium Chloride 0.9% 10 ML Syringe FLUSH PRN (14:04)
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
[2017-03-09] MEDS ORDERED: LORazepam 2 MG/ML MDV IVPUSH ONE (20:20)
[2017-03-09] MEDS ORDERED: Ondansetron 4 MG/2 ML SDV IVPUSH ONE (20:30)
[2017-03-09] MEDS: Sodium Chloride 0.9% 1,000 ML IV SCH (20:48)
[2017-03-09] MEDS ORDERED: HYDROmorphone 1 MG/ML Syringe IVPUSH PRN (21:05)
[2017-03-09] MEDS ORDERED: Ondansetron 4 MG/2 ML SDV IV PRN (21:05)
[2017-03-09] MEDS ORDERED: Albuterol/Ipratropium 3.0-0.5 MG/3 ML Neb Soln NEB PRN (21:05)
[2017-03-09] MEDS ORDERED: Acetaminophen 325 MG Tab PO PRN (21:05)
[2017-03-09] MEDS ORDERED: Promethazine 12.5 MG in Sodium Chloride 0.9% 50 ML IV PRN (21:05)
[2017-03-09] MEDS ORDERED: Polyethylene Glycol 3350 Powder 17 GM Packet PO PRN (21:05)
[2017-03-09] MEDS ORDERED: Bisacodyl 5 MG Tab PO PRN (21:05)
[2017-03-09] MEDS ORDERED: Metoprolol Tartrate 5 MG/5 ML SDV IVPUSH PRN (21:08)
[2017-03-09] MEDS ORDERED: LORazepam 2 MG/ML MDV IVPUSH PRN (21:08)
[2017-03-09] MEDS ORDERED: hydrALAZINE 20 MG/ML SDV IVPUSH PRN (21:08)
[2017-03-09] MEDS: LORazepam 2 MG/ML MDV IVPUSH PRN (21:48)
[2017-03-09] MEDS ORDERED: HYDROmorphone 0.5 MG/0.5 ML Syringe IVPUSH PRN (22:00)
[2017-03-09] MEDS: Acetaminophen/HYDROcodone 325-5 MG Tab PO PRN (22:50)
[2017-03-09] MEDS: Lidocaine 5% 700 MG Patch TOP SCH (22:51)
[2017-03-10] MEDS: LORazepam 2 MG/ML MDV IVPUSH PRN ×2 (00:15→18:33)
[2017-03-10] MEDS: Sodium Chloride 0.9% 1,000 ML IV SCH ×3 (03:29→18:49)
[2017-03-10] MEDS: Levothyroxine 112 MCG Tab PO SCH (06:13)
[2017-03-10] MEDS: LORazepam 1 MG Tab PO PRN ×4 (06:14→20:54)
[2017-03-10] MEDS: Acetaminophen/HYDROcodone 325-5 MG Tab PO PRN ×4 (06:15→23:46)
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
[2017-03-10] MEDS ORDERED: Magnesium Oxide 400 MG Tab PO ONE (07:30)
[2017-03-10] MEDS ORDERED: FLUoxetine 20 MG Cap PO SCH ×2 (09:00→09:47)
[2017-03-10] MEDS: Pantoprazole 40 MG Tab.CR PO SCH ×2 (09:22→20:50)
[2017-03-10] MEDS: Docusate Sodium 100 MG Cap PO SCH ×2 (09:22→20:49)
[2017-03-10] MEDS: Thiamine 100 MG Tab PO SCH (09:23)
[2017-03-10] MEDS: Nicotine 21 MG/24 Hr Patch TRDERM SCH (09:23)
[2017-03-10] MEDS: Magnesium Oxide 400 MG Tab PO SCH (09:39)
[2017-03-10] MEDS ORDERED: Scopolamine 1.5 MG Transdermal Patch TRDERM PRN (09:52)
[2017-03-10] MEDS ORDERED: FLUoxetine 20 MG Cap PO ONE (10:00)
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
[2017-03-10] MEDS ORDERED: LORazepam 2 MG Tab PO PRN (20:22)
[2017-03-10] MEDS ORDERED: Acetaminophen/Codeine 300-30 MG Tab PO PRN (20:40)
[2017-03-10] MEDS: Pramipexole 0.25 MG Tab PO SCH (20:49)
[2017-03-10] MEDS: Folic Acid 1 MG Tab PO SCH (20:50)
[2017-03-10] MEDS: QUEtiapine 25 MG Tab PO SCH (20:51)
[2017-03-10] MEDS ORDERED: QUEtiapine 25 MG Tab PO SCH (21:00)
[2017-03-10] MEDS: Lidocaine 5% 700 MG Patch TOP SCH (21:30)
[2017-03-10] MEDS: Silver Sulfadiazine 1% Crm 50 GM Tube TOP SCH (21:32)
[2017-03-10] MEDS ORDERED: diphenhydrAMINE 50 MG/ML SDV IVPUSH ONE (21:53)
[2017-03-10] MEDS ORDERED: chlordiazePOXIDE 25 MG Cap PO ONE ×2 (22:44→23:00)
[2017-03-10] MEDS ORDERED: chlordiazePOXIDE 25 MG Cap PO STA (22:55)
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
[2017-03-11] MEDS: DICLOFENAC EPOLAMINE TOP SCH (09:55)
[2017-03-11] MEDS: TERBINAFINE 250 MG PO SCH (09:55)
[2017-03-11] MEDS: Levothyroxine 112 MCG Tab PO SCH (09:59)
[2017-03-11] MEDS: Nicotine 21 MG/24 Hr Patch TRDERM SCH (10:00)
[2017-03-11] MEDS: Thiamine 100 MG Tab PO SCH (10:00)
[2017-03-11] MEDS: FLUoxetine 20 MG Cap PO SCH (10:01)
[2017-03-11] MEDS: Magnesium Oxide 400 MG Tab PO SCH (10:01)
[2017-03-11] MEDS: Pantoprazole 40 MG Tab.CR PO SCH ×2 (10:02→21:43)
[2017-03-11] MEDS: LORazepam 1 MG Tab PO PRN ×3 (10:02→21:50)
[2017-03-11] MEDS: Docusate Sodium 100 MG Cap PO SCH ×2 (10:02→21:43)
[2017-03-11] MEDS: Silver Sulfadiazine 1% Crm 50 GM Tube TOP SCH ×2 (10:04→21:45)
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
[2017-03-11] MEDS: Lidocaine 5% 700 MG Patch TOP SCH (21:42)
[2017-03-11] MEDS: QUEtiapine 25 MG Tab PO SCH (21:42)
[2017-03-11] MEDS: Pramipexole 0.25 MG Tab PO SCH (21:43)
[2017-03-11] MEDS: Folic Acid 1 MG Tab PO SCH (21:43)
[2017-03-12] MEDS: Acetaminophen/HYDROcodone 325-5 MG Tab PO PRN ×2 (03:49→12:54)
[2017-03-12] MEDS: Levothyroxine 112 MCG Tab PO SCH (06:14)
[2017-03-12] MEDS: LORazepam 1 MG Tab PO PRN ×2 (06:14→12:55)
[2017-03-12 08:18] VITALS: BP 103/60
[2017-03-12] MEDS: FLUoxetine 20 MG Cap PO SCH (08:51)
[2017-03-12] MEDS: Thiamine 100 MG Tab PO SCH (08:51)
[2017-03-12] MEDS: Pantoprazole 40 MG Tab.CR PO SCH (08:51)
[2017-03-12] MEDS: Docusate Sodium 100 MG Cap PO SCH (08:52)
[2017-03-12] MEDS: DICLOFENAC EPOLAMINE TOP SCH (08:52)
[2017-03-12] MEDS: Nicotine 21 MG/24 Hr Patch TRDERM SCH (08:52)
[2017-03-12] MEDS: Magnesium Oxide 400 MG Tab PO SCH (08:52)
[2017-03-12] MEDS: TERBINAFINE 250 MG PO SCH (08:54)
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
[2017-03-12] MEDS ORDERED: LORazepam 1 MG Tab PO PRN (10:18)
[2017-03-12] MEDS: Silver Sulfadiazine 1% Crm 50 GM Tube TOP SCH (12:57)
== END 2017-03-12 13:00 | DRG 897 ==
LOC: JD.ED 13:42 → JD.ICU 21:42 → JD.MS 03-11 18:43
PROVIDERS: ADMIT Internal Medicine; ATTEND Internal Medicine
PROC: HZ2ZZZZ Detoxification Services for Substance Abuse Treatment (ICD-10-PCS; principal; 2017-03-09)
DX: Z04.41 Encounter for examination and observation following alleged adult rape (principal); F10.232 Alcohol dependence with withdrawal with perceptual disturbance; F15.20 Other stimulant dependence, uncomplicated; T76.21XA Adult sexual abuse, suspected, initial encounter; F33.2 Major depressive disorder, recurrent severe without psychotic features; F10.229 Alcohol dependence with intoxication, unspecified; F12.90 Cannabis use, unspecified, uncomplicated; Y90.1 Blood alcohol level of 20-39 mg/100 ml; F32.9 Major depressive disorder, single episode, unspecified; E83.42 Hypomagnesemia; M54.5 Low back pain; G89.29 Other chronic pain; E03.9 Hypothyroidism, unspecified; K21.9 Gastro-esophageal reflux disease without esophagitis; E53.8 Deficiency of other specified B group vitamins; F41.9 Anxiety disorder, unspecified; M06.9 Rheumatoid arthritis, unspecified; Z87.820 Personal history of traumatic brain injury; Z87.440 Personal history of urinary (tract) infections; Z88.0 Allergy status to penicillin; Z91.030 Bee allergy status; Z91.038 Other insect allergy status; Z88.5 Allergy status to narcotic agent; Z91.09 Other allergy status, other than to drugs and biological substances; Z79.899 Other long term (current) drug therapy; Z66 Do not resuscitate
CPT/HCPCS: 36415; 80053; 80306; 81001; 83690; 84439; 84443; 85025; 85610; 96374; 96375; 99285; G0480; J2060; J2405; J7040; J7050; 80048; 83735; 97161-GP; 97165-GO; 99284; A9270-GY; J1200

== ENCOUNTER 2017-06-23 06:59 | Day surgery (SDC) | payer MEDICARE, MEDICAID ==
[2017-06-23] MEDS ORDERED: Lidocaine 1%/Sod Bicarbonate in NS 8.4% 1 ML Syringe IV PRN (07:00)
[2017-06-23] MEDS ORDERED: Sodium Chloride 0.9% 10 ML Syringe FLUSH PRN (07:00)
[2017-06-23] MEDS ORDERED: Lactated Ringers 1,000 ML IV SCH (07:00)
[2017-06-23] MEDS ORDERED: Propofol 200 MG/20 ML SDV ONE (07:15)
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
[2017-06-23 08:33] VITALS: BP 99/72
--- NOTE | 2017-06-23 08:33 | PCM48HPAN ---
Post Anesthesia Note - EVALUATION WITHIN 48HRS OF ANESTHETIC Vital Signs in Normal Range: Yes Patient Participated in Evaluation: Yes Respiratory Function Stable: Yes Airway Patent: Yes Cardiovascular Function Stable: Yes Hydration Status Stable: Yes Pain Control Satisfactory: Yes Nausea and Vomiting Control Satisfactory: Yes Mental Status Recovered: Yes - COMMENTS/OBSERVATIONS Free Text/Narrative:: pt resting quietly. no c/o VSS
--- NOTE | 2017-06-23 08:40 | PCM.OPNOTE ---
- General Post-Op/Procedure Note Date of Surgery/Procedure: 06/23/17 Operative Procedure(s): Gastrojejunostomy with bx Pre Op Diagnosis: dysphagia Post-Op Diagnosis: Same Anesthesia Technique: MAC Primary Surgeon: Berhane Guillaume EBL in mLs: 0 Complications: None Condition: Good
--- NOTE | 2017-06-23 12:39 | OR ---
DATE OF OPERATION: 06/23/2017 SURGEON: Berhane Guillaume MD PREOPERATIVE DIAGNOSIS: Dysphagia, epigastric pain, and dyspepsia. POSTOPERATIVE DIAGNOSIS: Dysphagia, epigastric pain, and dyspepsia. OPERATION PERFORMED: Gastrojejunostomy with biopsy. FINDINGS: Gastric pouch with gastrojejunostomy with erythema at the gastrojejunostomy. Some pills were noted in the pouch. Nodularity was noted around the anastomosis. Biopsies were taken of the anastomosis. The jejunum did not show any pathology. The scope readily passed into the jejunum, past the anastomosis, and the caliber of the anastomosis was uncertain. The esophagus was normal. The GE junction was free of any pathology and was okay to the 35 cm. ANESTHESIA: Done under IV sedation. DESCRIPTION OF PROCEDURE: The patient was taken to the endoscopy room, placed in a supine position, IV sedation was given, and the patient was placed in left lateral position. Bite block was inserted and video Olympus gastroscope placed in the posterior oropharynx, under direct vision, threaded past the cricopharyngeus, down the esophagus, and into the stomach. The stomach was insufflated, and the gastrojejunostomy was identified described as above. The scope passed through it and in the jejunum, and this was unremarkable. The anastomosis itself was inflamed. No source of bleeding. The biopsies were taken of the anastomosis. Gastric pouch showed 2 pills that were in it, but otherwise unremarkable. Scope was withdrawn to the GE junction. Then, the scope was withdrawn showing normal esophagus. The patient tolerated the procedure and was sent to recovery room in a stable condition. Specimen sent to pathology in a labeled container. The patient will be followed up by her family doctor, Dr. Francis. ESTIMATED BLOOD LOSS: MMODAL /[id number]
== END 2017-06-23 09:00 | disposition home or self-care (01) ==
LOC: JD.SDS 06:59
PROVIDERS: ATTEND Surgery
DX: K63.89 Other specified diseases of intestine (principal); E03.9 Hypothyroidism, unspecified; F32.9 Major depressive disorder, single episode, unspecified; F41.9 Anxiety disorder, unspecified; E87.6 Hypokalemia; E87.1 Hypo-osmolality and hyponatremia; E11.9 Type 2 diabetes mellitus without complications; E66.9 Obesity, unspecified; Z88.0 Allergy status to penicillin; Z88.8 Allergy status to other drugs, medicaments and biological substances; Z91.030 Bee allergy status; Z91.09 Other allergy status, other than to drugs and biological substances; Z98.84 Bariatric surgery status; Z90.49 Acquired absence of other specified parts of digestive tract; Z90.710 Acquired absence of both cervix and uterus; Z79.899 Other long term (current) drug therapy; F17.210 Nicotine dependence, cigarettes, uncomplicated; Z68.30 Body mass index [BMI] 30.0-30.9, adult
CPT/HCPCS: 44361; J7120; 00740; 88305; J2704

== ENCOUNTER 2018-12-14 22:01 | Inpatient (IN) | payer MEDICARE, MEDICAID ==
[2018-12-14] MEDS ORDERED: Sodium Chloride 0.9% 10 ML Syringe FLUSH PRN (22:06)
[2018-12-14] MEDS ORDERED: Sodium Chloride 0.9% 1,000 ML IV SCH (22:15)
[2018-12-14 22:43] LABS: ACETAMINOPHEN 0 ug/mL (10-30)
[2018-12-14] MEDS ORDERED: Sodium Chloride 0.9% 500 ML IV ONE (23:29)
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
[2018-12-15] MEDS ORDERED: Levothyroxine 100 MCG Vial IVPUSH ONE (01:23)
[2018-12-15] MEDS ORDERED: Levothyroxine 100 MCG Tab PO ONE (01:27)
[2018-12-15 04:04] VITALS: BP 118/74
--- NOTE | 2018-12-15 06:52 | CR ---
Chest: Frontal view of the chest was obtained. Comparison: No prior study. Heart size is mildly enlarged. Tortuous thoracic aorta is seen. Lungs are clear with no acute parenchymal change. Surgical clips are seen within the upper abdomen. Bony structures are grossly intact. Impression: 1. Slight cardiomegaly. Other incidental findings. 2. Nothing acute is appreciated on frontal chest x-ray. Diagnostic code #2
--- NOTE | 2018-12-15 06:52 | CT ---
Head CT Technique: Multiple axial sections through the brain were obtained. Intravenous contrast was not utilized. Comparison: Previous head CT study of 12/02/16. Findings: Ventricles along with basal cisterns and sulci over the convexities are within normal limits for the patient's age. No abnormal parenchymal densities are seen. No evidence of intracranial hemorrhage. No midline shift or mass effect is seen. Bone window settings were reviewed which shows no acute calvarial abnormality. Visualized sinuses are clear. Impression: 1. Nothing acute is appreciated on noncontrast head CT exam. Diagnostic code #1 I agree with preliminary report from [facility], finalized on 12/14/18, 11:18 PM Central Time
== END 2018-12-15 07:10 | disposition home or self-care (01) | DRG 812 ==
LOC: JD.ED 22:01 → JD.MS 12-15 00:34
PROVIDERS: ADMIT Family Medicine; ATTEND Family Medicine
PROC: 30233N1 Transfusion of Nonautologous Red Blood Cells into Peripheral Vein, Percutaneous Approach (ICD-10-PCS; principal; 2018-12-15)
DX: D64.89 Other specified anemias (principal); C16.9 Malignant neoplasm of stomach, unspecified; E03.9 Hypothyroidism, unspecified; H54.7 Unspecified visual loss; R13.10 Dysphagia, unspecified; M19.90 Unspecified osteoarthritis, unspecified site; M06.9 Rheumatoid arthritis, unspecified; F41.9 Anxiety disorder, unspecified; F32.9 Major depressive disorder, single episode, unspecified; E66.9 Obesity, unspecified; E53.8 Deficiency of other specified B group vitamins; F15.10 Other stimulant abuse, uncomplicated; F12.10 Cannabis abuse, uncomplicated; R55 Syncope and collapse; R41.82 Altered mental status, unspecified; Z88.6 Allergy status to analgesic agent; Z91.030 Bee allergy status; Z79.890 Hormone replacement therapy; Z91.048 Other nonmedicinal substance allergy status; Z79.899 Other long term (current) drug therapy; Z86.010 Personal history of colon polyps; Z87.440 Personal history of urinary (tract) infections; Z90.49 Acquired absence of other specified parts of digestive tract; Z87.11 Personal history of peptic ulcer disease; Z90.710 Acquired absence of both cervix and uterus; Z87.820 Personal history of traumatic brain injury; Z98.84 Bariatric surgery status; Z88.0 Allergy status to penicillin
CPT/HCPCS: 36415; 36430; 51702; 70450; 71045; 80053; 80306; 82607; 83540; 83735; 84443; 84466; 84484; 85025; 86850; 86900; 86901; 86922; 93005; 96360; 96361; 99285; G0480 ×3; J7040; P9016; 93010; A9270-GY